=== PATIENT | female | born 1960 | race Caucasian/White ===

== ENCOUNTER 2018-02-16 13:06 | Outpatient (CLI) | payer BC ==
[2018-02-16 18:50] LABS: BASOPHILS % (AUTO) 0.6 %; EOSINOPHILS # (AUTO) 0.3 10^3/uL (0.0-0.7); EOSINOPHILS % (AUTO) 3.2 %; HGB - HEMOGLOBIN 13.4 g/dL (12.0-16.0); LYMPHOCYTES # (AUTO) 1.6 10^3/uL (1.5-3.5); LYMPHOCYTES % (AUTO) 19.3 %; MEAN CORPUSCULAR HEMOGLOBIN 28.5 pg (27.0-31.0); MEAN CORPUSCULAR HGB CONC 32.6 g/dL (32.0-36.0); MEAN CORPUSCULAR VOLUME 87.5 fL (81.0-99.0); MEAN PLATELET VOLUME 9.4 fL (7.9-10.8); MONOCYTES # (AUTO) 0.4 10^3/uL (0.0-1.0); MONOCYTES % (AUTO) 4.9 %; NEUTROPHILS # (AUTO) 5.8 10^3/uL (1.5-6.6); PLT - PLATELET COUNT 304 10^3/uL (130-450); RED BLOOD COUNT 4.69 10^6/uL (4.20-5.40); RED CELL DISTRIBUTION WIDTH 15.2 % (12.0-15.0); WHITE BLOOD COUNT 8.1 x10^3/uL (4.8-10.8)
[2018-02-16 19:05] LABS: HB2 TOTAL 14.7 g/dL; HEMOGLOBIN A1C 0.57 g/dL; HEMOGLOBIN A1C % 5.7 % (4.6-6.2)
[2018-02-16 19:07] LABS: ALBUMIN/GLOBULIN RATIO 1.5 (1.0-2.2); ALKALINE PHOSPHATASE 77 IU/L (42-121); ALT ALANINE AMINOTRANSFERASE 23 IU/L (10-60); AST ASPARTATE AMINOTRANSFERASE 24 IU/L (10-42); BILIRUBIN,TOTAL 0.7 mg/dL (0.2-1.0); BUN - BLOOD UREA NITROGEN 9 mg/dL (6-20); CALCIUM 9.3 mg/dL (8.5-10.3); CARBON DIOXIDE - CO2 29 mmol/L (21-32); CHLORIDE 101 mmol/L (101-111); CHOL/HDL RATIO 2.8 (<4.4); CHOLESTEROL 94 mg/dL; CREATININE 0.5 mg/dL (0.4-1.0); GFR - MDRD 127 (>89); GLUCOSE 85 mg/dL (70-100); HDL CHOLESTEROL 34 mg/dL; LDL CHOLESTEROL,CALCULATED 47 mg/dL; LDL/HDL RATIO 1.4 (<4.4); SODIUM 136 mmol/L (135-145); TOTAL PROTEIN 6.6 g/dL (6.7-8.2); VLDL CHOLESTEROL 13 mg/dL
== END 2018-02-16 23:59 | disposition home or self-care (01) ==
LOC: LAB.WCP 13:06
PROVIDERS: ATTEND Family Medicine
DX: I63.9 Cerebral infarction, unspecified (principal); Z13.220 Encounter for screening for lipoid disorders; Z13.1 Encounter for screening for diabetes mellitus; R51 Headache; R00.2 Palpitations
CPT/HCPCS: 36415; 80053; 80061; 83036; 83721; 84443; 85025

== ENCOUNTER 2019-09-04 04:39 | Emergency (ER) | payer BC ==
[2019-09-04] MEDS ORDERED: FOLIC ACID INJ 1 MG, THIAMINE INJ 100 MG, MAGNESIUM SULFATE 2 GM, MULTIVITAMIN 10 ML in... IV STA ×5 (05:42)
[2019-09-04] MEDS ORDERED: ALPRAZolam 0.25 MG TABLET PO STA (05:43)
[2019-09-04] MEDS ORDERED: DEXAMETHASONE 10 MG/ML VIAL IVP STA (05:43)
--- NOTE | 2019-09-04 05:46 | ED Physician Documentation ---
History of Present Illness - Stated complaint Stated Complaint: RACING HEART, HEAD PX, SORE THROAT - Chief complaint Chief Complaint: Cardiac - History obtained from History obtained from: Patient, Family - History of Present Illness Timing: How many days ago (3) - Additonal information Additional information: 59-year-old female previously well has had an upper respiratory infection over the past 4 to 5 days and she has now developed some palpitations in her chest over the past 3 days that are particularly worse this morning. She is noticing frequent palpitations. She is having some central chest pain as well. She knows that she is under significant stress. She is from her and her [id number] who was planning to come up to stay with her has now passed. The patient indicates that she was close to her [id number]. She indicates significant stress related to all aspects of this. She is accompanied here this morning by her daughter who is supportive. Patient denies any fever associated with this she does have a persistence of cough her sore throat and ear pain are now resolved. She has had headaches periodically. Review of Systems Constitutional: reports: Chills, Myalgias, Fatigue. denies: Fever Eyes: denies: Decreased vision Ears: reports: Ear pain Nose: reports: Rhinorrhea / runny nose, Congestion Throat: reports: Sore throat Cardiac: reports: Chest pain / pressure, Palpitations Respiratory: reports: Cough. denies: Dyspnea GI: denies: Abdominal Pain, Nausea, Vomiting : denies: Dysuria, Frequency Skin: denies: Rash Musculoskeletal: denies: Neck pain, Back pain, Extremity pain Neurologic: denies: Generalized weakness, Focal weakness, Numbness Psychiatric: reports: Depressed, Anxiety PD PAST MEDICAL HISTORY - Past Medical History Neuro: TIA - Past Surgical History Past Surgical History: Yes General: Cholecystectomy, Appendectomy HEENT: Tonsil/Adenoidectomy - Present Medications Home Medications: Ambulatory Orders Medication Instructions Recorded Confirmed Alprazolam [Xanax] 0.5 - 1 mg PO Q8HR PRN #14 tablet 09/04/19 Aspirin [Adult Aspirin Regimen] 09/04/19 Atorvastatin [Lipitor] 4 tab DAILY 09/04/19 09/04/19 - Allergies Allergies/Adverse Reactions: Allergies Allergy/AdvReac Type Severity Reaction Status Date / Time No Known Drug Allergies Allergy Verified 01/01/20 04:46 - Social History Does the pt smoke?: No Smoking Status: Never smoker Does the pt drink ETOH?: No Does the pt have substance abuse?: No - Immunizations Immunizations are current?: Yes - POLST Patient has POLST: No PD ED PE NORMAL - Vitals Vital signs reviewed: Yes (tachy and hypertensive ) - General General: Alert and oriented X 3, Well developed/nourished - HEENT HEENT: Atraumatic, PERRL, EOMI, Ears normal, Moist mucous membranes, Pharynx benign, Dentition benign - Neck Neck: Supple, no meningeal sign, No bony TTP, No JVD - Cardiac Cardiac: RRR, No murmur - Respiratory Respiratory: No respiratory distress, Clear bilaterally - Abdomen Abdomen: Normal bowel sounds, Soft, Non tender, Non distended, No organomegaly - Back Back: No CVA TTP, No spinal TTP - Derm Derm: Normal color, Warm and dry, No rash - Extremities Extremities: No deformity, No edema - Neuro Neuro: Alert and oriented X 3, technology sales consultant 2-12 intact, No motor deficit, No sensory deficit, Normal speech Eye Opening: Spontaneous Motor: Obeys Commands Verbal: Oriented GCS Score: 15 - Psych Psych: Other (mood is anxious and the affect is blunted) Results - Vitals Vitals: Vital Signs - 24 hr 09/04/19 09/04/19 04:42 06:45 Temperature 97.9 C H Heart Rate 101 H 75 Respiratory 18 20 Rate Blood Pressure 165/72 H 121/69 O2 Saturation 100 99 Oxygen O2 Source Room air - EKG (time done) 0449 Rate: Rate (enter#) (92) Rhythm: NSR Ischemia: Normal ST segments Compare to prior EKG: Old EKG unavailable Computer interpretation: Agree with computer - Labs Labs: Laboratory Tests 09/04/19 09/04/19 09/04/19 05:25 05:25 05:25 WBC 10.3 RBC 4.71 Hgb 13.7 Hct 40.9 MCV 86.8 MCH 29.1 MCHC 33.5 RDW 13.2 Plt Count 288 MPV 9.9 Neut # (Auto) 8.0 H Lymph # (Auto) 1.3 L [place] # (Auto) 1.0 Eos # (Auto) 0.1 Baso # (Auto) 0.0 Absolute Nucleated RBC 0.00 Nucleated RBC % 0.0 Sodium 132 L Potassium 3.0 L Chloride 94 L Carbon Dioxide 27 Anion Gap 11.0 BUN 11 Creatinine 0.6 Estimated GFR (MDRD) 102 Glucose 113 H Calcium 9.4 Total Bilirubin 0.7 AST 30 ALT 30 Alkaline Phosphatase 73 Troponin I High Sens 3.5 Total Protein 8.0 Albumin 5.4 Globulin 2.6 Albumin/Globulin Ratio 2.1 Lipase 53 H - Rads (name of study) chest Radiology: Prelim report reviewed (Impression: Clear lungs.), EMP read indepedently, See rad report Procedures - IVC sono (time) 0540 Bedside IVC sono: IVC measures (cm) (1.13), IVC collapsed c insp (cm) (complete), Dehydration (est just more than one liter.) PD MEDICAL DECISION MAKING - ED course Complexity details: reviewed old records, reviewed results, re-evaluated patient, considered differential, d/w patient, d/w family ED course: 59-year-old female with symptomatic PVCs is found to be dehydrated on interrogation of her inferior vena cava and she is quite stressed. She is administered a banana bag intravenously for the dehydration and she is given Xanax 0.5 mg orally for anxiety. She has not had good luck with Ativan previously. She does have some chest wall pain and she has had sobbing at night. There are no specific findings on diagnostics and the patient is treated for viral uri, dehydration and stress. Departure - Departure Disposition: 01 Home, Self Care Clinical Impression: Symptomatic PVCs, Sleep deprivation, Viral URI with cough, Stress reaction Condition: Stable Instructions: ED Stress React, ED Palpitations, ED URI Viral Follow-Up: KARYNA LUO MD [Primary Care Provider] - Prescriptions: Alprazolam [Xanax] 0.5 - 1 mg PO Q8HR PRN #14 tablet PRN Reason: Anxiety
[2019-09-04 05:47] LABS: BASOPHILS % (AUTO) 0.1 %; EOSINOPHILS # (AUTO) 0.1 10^3/uL (0.0-0.7); EOSINOPHILS % (AUTO) 0.7 %; HGB - HEMOGLOBIN 13.7 g/dL (12.0-16.0); LYMPHOCYTES # (AUTO) 1.3 10^3/uL (1.5-3.5); LYMPHOCYTES % (AUTO) 12.4 %; MEAN CORPUSCULAR HEMOGLOBIN 29.1 pg (27.0-31.0); MEAN CORPUSCULAR HGB CONC 33.5 g/dL (32.0-36.0); MEAN CORPUSCULAR VOLUME 86.8 fL (81.0-99.0); MEAN PLATELET VOLUME 9.9 fL (7.9-10.8); MONOCYTES % (AUTO) 9.5 %; NEUTROPHILS % (AUTO) 76.9 %; PLT - PLATELET COUNT 288 10^3/uL (130-450); RED BLOOD COUNT 4.71 10^6/uL (4.20-5.40); RED CELL DISTRIBUTION WIDTH 13.2 % (12.0-15.0); WHITE BLOOD COUNT 10.3 x10^3/uL (4.8-10.8)
[2019-09-04] MEDS ORDERED: THIAMINE 100 MG/1 ML 2 ML MDV ONE (05:48)
[2019-09-04 05:58] LABS: ALBUMIN 5.4 g/dL (3.2-5.5); ALBUMIN/GLOBULIN RATIO 2.1 (1.0-2.2); BILIRUBIN,TOTAL 0.7 mg/dL (0.2-1.0); CALCIUM 9.4 mg/dL (8.5-10.3); CREATININE 0.6 mg/dL (0.4-1.0)
--- NOTE | 2019-09-04 06:37 | XRAY Report ---
Reason: chest pain Procedure Date: 09/04/2019 Accession Number: [id number] / [id number] Procedure: XR - Chest 1 View X-Ray CPT Code: 87618 Final Report FULL RESULT: EXAM: CHEST RADIOGRAPHY EXAM DATE: 09/04/2019 06:12 AM. CLINICAL HISTORY: Chest pain. COMPARISON: None. TECHNIQUE: 1 view. FINDINGS: The mediastinal and cardiac silhouettes are normal. The lungs are clear. There is no pleural effusion or pneumothorax. Degenerative changes are seen in the right shoulder. IMPRESSION: Clear lungs. RADIA
[2019-09-04] MEDS ORDERED: ACETAMINOPHEN 325 MG TABLET PO STA (06:49)
[2019-09-04] MEDS ORDERED: POTASSIUM CHLORIDE 20 MEQ TABLET PO STA (06:50)
[2019-09-04 07:29] VITALS: BP 112/61
== END 2019-09-04 07:39 | disposition home or self-care (01) ==
LOC: ED 04:39
DX: I49.3 Ventricular premature depolarization (principal); R07.89 Other chest pain; E86.0 Dehydration; J06.9 Acute upper respiratory infection, unspecified; Z72.820 Sleep deprivation; F43.9 Reaction to severe stress, unspecified; F41.9 Anxiety disorder, unspecified; Z79.82 Long term (current) use of aspirin
CPT/HCPCS: 36415; 71045; 80053; 83690; 84484; 85025; 93005; 96365; 99284; A9270; J3411

== ENCOUNTER 2020-08-24 19:30 | Inpatient (IN) | payer BC ==
[2020-08-24 20:09] LABS: BASOPHILS % (AUTO) 0.3 %; EOSINOPHILS # (AUTO) 0.1 10^3/uL (0.0-0.7); EOSINOPHILS % (AUTO) 0.5 %; HGB - HEMOGLOBIN 14.6 g/dL (12.0-16.0); LYMPHOCYTES % (AUTO) 12.8 %; MEAN CORPUSCULAR HEMOGLOBIN 28.9 pg (27.0-31.0); MEAN CORPUSCULAR HGB CONC 33.1 g/dL (32.0-36.0); MEAN CORPUSCULAR VOLUME 87.2 fL (81.0-99.0); MEAN PLATELET VOLUME 9.9 fL (7.9-10.8); MONOCYTES # (AUTO) 0.6 10^3/uL (0.0-1.0); NEUTROPHILS # (AUTO) 12.7 10^3/uL (1.5-6.6); NEUTROPHILS % (AUTO) 82.1 %; PLT - PLATELET COUNT 356 10^3/uL (130-450); RED BLOOD COUNT 5.06 10^6/uL (4.20-5.40); RED CELL DISTRIBUTION WIDTH 13.2 % (12.0-15.0); WHITE BLOOD COUNT 15.4 x10^3/uL (4.8-10.8)
[2020-08-24 20:10] LABS: BILIRUBIN,URINE NEGATIVE (NEGATIVE); GLUCOSE, URINE (UA) NEGATIVE (NEGATIVE); KETONES,URINE (UA) NEGATIVE (NEGATIVE); LEUKOCYTE ESTERASE, URINE NEGATIVE (NEGATIVE); NITRITE,URINE NEGATIVE (NEGATIVE); OCCULT BLOOD,URINE NEGATIVE (NEGATIVE); PH,URINE >=9.0 PH (5.0-7.5); PROTEIN,URINE TRACE mg/dL (NEGATIVE); UROBILINOGEN,URINE 0.2 (NORMAL) E.U./dL (NORMAL)
[2020-08-24 20:13] LABS: CLARITY,URINE CLEAR (CLEAR)
[2020-08-24 20:21] LABS: ALBUMIN 5.3 g/dL (3.2-5.5); ALBUMIN/GLOBULIN RATIO 1.7 (1.0-2.2); BILIRUBIN,TOTAL 0.6 mg/dL (0.2-1.0); CALCIUM 10.2 mg/dL (8.5-10.3); CREATININE 0.6 mg/dL (0.4-1.0); TOTAL PROTEIN 8.4 g/dL (6.7-8.2)
[2020-08-24] MEDS ORDERED: MAG HYDROX/AL HYDROX/SIMETH 30 ML UDC PO STA (20:30)
[2020-08-24] MEDS ORDERED: LIDOCAINE VISCOUS 2% 15 ML UDC MM STA (20:30)
--- NOTE | 2020-08-24 20:31 | ED Physician Documentation ---
PD HPI ABD PAIN - Stated complaint Stated Complaint: ABD PAIN - Chief complaint Chief Complaint: Abd Pain - History obtained from History obtained from: Patient - Additional information Additional information: 60yo woman with history of remote appendectomy as a child and laparoscopic cholecystectomy developed epigastric and right upper quadrant pain at 1 PM that she describes as spasming. Since then it has progressed although over the last few minutes has come down a little bit. She is nauseous but has not vomited. She describes chronic but not acute constipation. Review of Systems Ten Systems: 10 systems reviewed and negative Constitutional: denies: Fever, Chills Cardiac: denies: Chest pain / pressure, Palpitations Respiratory: denies: Dyspnea, Cough GI: reports: Abdominal Pain, Nausea. denies: Vomiting PD PAST MEDICAL HISTORY - Past Medical History Neuro: TIA - Past Surgical History Past Surgical History: Yes General: Cholecystectomy, Appendectomy HEENT: Tonsil/Adenoidectomy - Present Medications Home Medications: Ambulatory Orders Medication Instructions Recorded Confirmed Alprazolam [Xanax] 0.5 - 1 mg PO Q8HR PRN #14 tablet 09/04/19 Aspirin [Adult Aspirin Regimen] 81 DAILY 09/04/19 Atorvastatin [Lipitor] 4 tab DAILY 09/04/19 09/04/19 - Allergies Allergies/Adverse Reactions: Allergies Allergy/AdvReac Type Severity Reaction Status Date / Time No Known Drug Allergies Allergy Verified 09/04/19 04:46 - Social History Does the pt smoke?: No Smoking Status: Never smoker Does the pt drink ETOH?: No Does the pt have substance abuse?: No - Immunizations Immunizations are current?: Yes - POLST Patient has POLST: No PD ED PE NORMAL - Vitals Vital signs reviewed: Yes - General General: Alert and oriented X 3, No acute distress - HEENT HEENT: PERRL, EOMI - Neck Neck: Supple, no meningeal sign, No bony TTP - Cardiac Cardiac: RRR, No murmur - Respiratory Respiratory: No respiratory distress, Clear bilaterally - Abdomen Abdomen: Other (Tender in the epigastrium and right upper quadrant more than the left upper quadrant, no surgical signs) - Back Back: No CVA TTP, No spinal TTP - Derm Derm: Normal color, Warm and dry - Extremities Extremities: No edema, No calf tenderness / cord Results - Vitals Vitals: Vital Signs - 24 hr 08/24/20 08/24/20 19:32 21:37 Temperature 36.4 C L 36.7 C Heart Rate 91 85 Respiratory 18 14 Rate Blood Pressure 170/84 H 136/73 H O2 Saturation 98 100 Oxygen O2 Source Room air - EKG (time done) 2041 Rate: Rate (enter#) (99) Rhythm: NSR [place]: Normal Intervals: Normal HI QRS: Normal Ischemia: Normal ST segments Computer interpretation: Agree with computer - Labs Labs: Laboratory Tests 08/24/20 08/24/20 08/24/20 19:43 20:00 20:00 WBC 15.4 H RBC 5.06 Hgb 14.6 Hct 44.1 MCV 87.2 MCH 28.9 MCHC 33.1 RDW 13.2 Plt Count 356 MPV 9.9 Neut # (Auto) 12.7 H Lymph # (Auto) 2.0 [place] # (Auto) 0.6 Eos # (Auto) 0.1 Baso # (Auto) 0.0 Absolute Nucleated RBC 0.00 Nucleated RBC % 0.0 Sodium 137 Potassium 3.2 L Chloride 97 L Carbon Dioxide 27 Anion Gap 13.0 BUN 12 Creatinine 0.6 Estimated GFR (MDRD) 102 Glucose 128 H Calcium 10.2 Total Bilirubin 0.6 AST 25 ALT 22 Alkaline Phosphatase 81 Total Protein 8.4 H Albumin 5.3 Globulin 3.1 Albumin/Globulin Ratio 1.7 Lipase 24 Urine Color YELLOW Urine Clarity CLEAR Urine pH >=9.0 H Ur Specific [place] 1.015 Urine Protein TRACE Urine Glucose (UA) NEGATIVE Urine Ketones NEGATIVE Urine Occult Blood NEGATIVE Urine Nitrite NEGATIVE Urine Bilirubin NEGATIVE Urine Urobilinogen 0.2 (NORMAL) Ur Leukocyte Esterase NEGATIVE Ur Microscopic Review NOT INDICATED Urine Culture Comments NOT INDICATED PD MEDICAL DECISION MAKING - ED course ED course: 60-year-old woman presents with acute upper abdominal pain. She has no gallbladder. Nonperitoneal exam. Initially tried some GI cocktail which she did have some relief from. Also did an EKG to make sure there was not ischemia, there was not. Pain quickly came back after the GI cocktail and looked uncomfortable so was sent over for CT with IV contrast. CT demonstrated a large amount of fluid and gas in the stomach with potential gastric outlet obstruction, also probably partial obstruction potentially closed-loop or internal hernia. Case was discussed by phone with Dr. Plascencia, the on-call surgeon at approximately 10 PM. He will consult and write orders. He plans to try initial management as conservative with bowel rest and NG tube. Departure - Departure Disposition: 66 [facility] DC/[facility] Clinical Impression: Small bowel obstruction Condition: Fair
[2020-08-24] MEDS ORDERED: ALPRAZolam 0.25 MG TABLET PO STA (20:51)
[2020-08-24] MEDS ORDERED: IOVERSOL 320 100 ML VIAL IVP ONE ×2 (21:05→21:37)
[2020-08-24] MEDS ORDERED: LORazepam 2 MG/ML VIAL IVP STA ×2 (21:36→22:01)
--- NOTE | 2020-08-24 21:58 | CT Report ---
PROCEDURE: Abdomen/Pelvis W INDICATIONS: IV only, upper abd pain CONTRAST: IV CONTRAST: Optiray 320 ml: 100 PO CONTRAST: *NO PO CONTRAST TECHNIQUE: After the administration of intravenous contrast, 5 mm thick sections acquired from the diaphragms to the symphysis. 5 mm thick coronal and sagittal reformats were acquired. For radiation dose reducti on, the following was used: automated exposure control, adjustment of mA and/or kV according to marisabel ent size. COMPARISON: None. FINDINGS: Image quality: Excellent. ABDOMEN: Lung bases: Lung bases are clear. Heart size is normal. Solid organs: Liver and spleen are normal in size and enhancement. Gallbladder is surgically absent Biliary system is non dilated. Pancreas enhances normally. No adrenal nodules. Kidneys demonstra te normal size and enhancement, without hydronephrosis. Peritoneum and bowel: A large amount of fluid and gas distends the gastric fundus. A shelf of soft ti ssue is noted within the gastric antrum (series 6/image 15 and series 3/image 21). Bowel loops demons trate normal overall wall thickness and caliber. A segment of fluid-filled, moderately dilated small bowel is present within the mid abdomen. The proximal and distal transition point both appear to be l ocated within the right upper quadrant (series 6, images 19 and 21). No pneumoperitoneum. Trace low-d ensity fluid is present within the pelvis. There are scattered colonic diverticula. No findings to newman ggest acute diverticulitis. A moderate amount of stool is present throughout the colon. No pneumatosi s. Nodes and vessels: No retroperitoneal or mesenteric adenopathy by size criteria. Aorta and inferior vena cava are normal in size. Miscellaneous: No ventral hernias. PELVIS: Genitourinary: Bladder wall thickness is normal. Miscellaneous: No inguinal hernias or adenopathy. Bones: No suspicious bony lesions. No vertebral body compression fractures. IMPRESSION: 1. Large amount of fluid and gas within the stomach. There is a questionable soft tissue shelf within the gastric antrum. The significance of this finding is unclear; however gastric outlet obstruction secondary to mass cannot be excluded. When possible, direct visualization could be used to further ch aracterize this finding. NG tube could also be useful to decompress the stomach at this time. 2. Dilated loop of the midportion of the small bowel with apparent proximal and distal transition poi nts within the right upper quadrant. Findings raise the suspicion for a closed loop partial obstructi on or internal hernia. Of note the colon is stool-filled suggesting incomplete obstruction. 3. Diverticulosis. No acute diverticulitis. These findings were discussed with Dr. Espinoza at 9:53 PM on 08/24/2020. Reviewed by: Maria Guadalupe Hernandez MD on 08/24/2020 9:56 PM PST Approved by: Maria Guadalupe Hernandez MD on 08/24/2020 9:56 PM PST Station ID: [id number]
[2020-08-24] MEDS ORDERED: D5.45NS W/20 MEQ KCL 1,000 ML IV STA (22:04)
[2020-08-24 23:50] LABS: C. PNEUMONIAE- RESP PCR PANEL NOT DETECTED
[2020-08-25] MEDS ORDERED: ONDANSETRON 4 MG/2 ML VIAL IVP PRN ×2 (00:05→00:10)
[2020-08-25] MEDS ORDERED: ACETAMINOPHEN 1,000 MG/100 ML 100 ML IV PRN (00:05)
[2020-08-25] MEDS ORDERED: HYDROmorphone 0.5 MG/0.5 ML SYRINGE IVP PRN (00:05)
--- NOTE | 2020-08-25 00:18 | SURGERY HX AND PHYSICAL(T) ---
Surgical History & Physical - Chief Complaint/HPI Chief Complaint: Small bowel obstruction History of Present Illness: 60-year-old female with no past surgical history who presents with 24 hours of nausea and vomiting. There is also associated abdominal discomfort and pain as well. She reports recent development of worsening constipation with decreasing frequency and increasing interval between bowel movements. Longstanding history of constipation historically. She denies prior colonoscopy and/or upper endoscopy. History of vaginal delivery x2 with no reported obstetrical laceration. Only past medical history is TIA for which there is no residual deficit. Patient's only medication is HMG Co. a reductase inhibitor. Denies fevers. No similar prior episodes of obstructive symptoms. Work-up by ER physician revealed dilated stomach along with small bowel and surgical consultation obtained. Family history of colorectal cancer. No family history or personal history of inflammatory bowel disease, Crohn's disease, ulcerative colitis. - PMH/PSH/Social Hx Neurological History: TIA General: Cholecystectomy, Appendectomy Eyes Ears Nose Throat (EENT): Tonsil/Adenoidectomy Smoking Status: Never smoker Does the pt drink ETOH?: No Does the pt have substance abuse?: No - Home Meds and Allergies Home Medications: Aspirin [Lyla] 325 mg PO DAILY 08/25/20 Atorvastatin [Lipitor] 40 mg PO DAILY 08/25/20 Allergies/Adverse Reactions: Allergies Allergy/AdvReac Type Severity Reaction Status Date / Time No Known Drug Allergies Allergy Verified 09/04/19 04:46 - Review of Systems Constitutional: Fatigue Gastrointestinal: Nausea, Vomiting, Abdominal pain, Constipation. No: Diarrhea, Melena, Hematochechezia - Vital Signs Heart Rate: 88 Blood Pressure: 137/87 Temperature: 36.8 C Respiratory Rate: 16 O2 Saturation: 98 Weight (kg): 54.431 kg Height: 1.6 m - Physical Exam General Appearance: positive: No acute distress, Alert Eyes Bilatera: positive: Normal inspection, PERRL, EOMI ENT: positive: ENT inspection nml Neck: positive: Nml inspection Respiratory: positive: Chest non-tender, No respiratory distress, Breath sounds nml. negative: Wheezes, Rales, Rhonchi Cardiovascular: positive: Regular rate & rhythm Abdomen: positive: Tenderness, Other (Time of this evaluation the patient with NG tube in place with no significant abdominal distention only mild tenderness to deep palpation. No rebound, no guarding. No peritoneal signs. No palpable hernias.). negative: Guarding, Rebound Rectal: positive: Other (Digital rectal with significant retained hard stool burden within the rectum. Disimpacted for small amount. No blood no pain no palpable masses) Extremities: positive: Non-tender, Full ROM, Nml appearance Neurologic/Psychiatric: positive: Oriented x3, CN's nml (2-12), Motor nml, Sensation nml, Mood/affect nml - Patient Review Patient Review: Problems were reviewed with the patient during this visit. Medications were reviewed with the patient during this visit. Allergies were reviewed this patient during this visit. Pertinent Tests Reviewed: All pertitent test for this patient were reviewed. - Assessment & Plan Assessment and Plan: 60-year-old female with history of TIA no other significant past medical history who presents with gastric distention and signs and symptoms consistent with small bowel obstruction. She has had no prior laparotomy, essentially she has a "virgin" abdomen. This is generally concerning in the setting of bowel obstruction the absence of prior surgical intervention and/or other underlying etiology including hernia to which this could be attributed. No peritoneal signs at this time. Plan as follows: 1. Bowel rest, nasogastric decompression, IV fluid resuscitation. 2. Serial abdominal exams, plain film imaging, possible repeat imaging with CT and contrast challenge. 3. May need operative intervention if fails conservative management. Will follow closely. 4. Electrolytes normal at this time we will continue to monitor them with daily lab draws. 5. Given the concerning features on CT imaging regarding the gastric findings and her significant change in bowel function, if we avoid operative intervention we would likely need to proceed with endoscopic evaluation especially given her chronic symptoms. Abdomen pelvis CT impression: 1. Large amount of fluid and gas within the stomach. There is a questionable soft tissue shelf within the gastric antrum. The significance of this finding is unclear; however gastric outlet obstruction secondary to mass cannot be excluded. When possible, direct visualization could be used to further characterize this finding. NG tube could also be useful to decompress the stomach at this time. 2. Dilated loop of the midportion of the small bowel with apparent proximal distal transition point within the upper abdomen. Findings raises suspicion for closed-loop partial obstruction or internal hernia. Of note the colon is stool-filled suggesting incomplete obstruction. 3. Diverticulosis no active or acute diverticulitis.
[2020-08-25] MEDS ORDERED: D5NS W/20 MEQ KCL 1,000 ML IV SCH (01:00)
[2020-08-25] MEDS: SODIUM CHLORIDE FLUSH 0.9% 10 ML SYRINGE IVP SCH ×3 (01:52→17:59)
[2020-08-25 05:15] LABS: BASOPHILS % (AUTO) 0.2 %; EOSINOPHILS # (AUTO) 0.1 10^3/uL (0.0-0.7); EOSINOPHILS % (AUTO) 0.8 %; HGB - HEMOGLOBIN 11.8 g/dL (12.0-16.0); LYMPHOCYTES # (AUTO) 1.8 10^3/uL (1.5-3.5); LYMPHOCYTES % (AUTO) 16.4 %; MEAN CORPUSCULAR HEMOGLOBIN 29.5 pg (27.0-31.0); MEAN CORPUSCULAR HGB CONC 33.7 g/dL (32.0-36.0); MEAN CORPUSCULAR VOLUME 87.5 fL (81.0-99.0); MEAN PLATELET VOLUME 9.8 fL (7.9-10.8); MONOCYTES # (AUTO) 0.8 10^3/uL (0.0-1.0); MONOCYTES % (AUTO) 7.7 %; NEUTROPHILS % (AUTO) 74.6 %; PLT - PLATELET COUNT 269 10^3/uL (130-450); RED CELL DISTRIBUTION WIDTH 13.2 % (12.0-15.0); WHITE BLOOD COUNT 10.7 x10^3/uL (4.8-10.8)
[2020-08-25 05:27] LABS: ALBUMIN 3.6 g/dL (3.2-5.5); ALBUMIN/GLOBULIN RATIO 1.6 (1.0-2.2); BILIRUBIN,TOTAL 0.5 mg/dL (0.2-1.0); CALCIUM 8.9 mg/dL (8.5-10.3); CREATININE 0.5 mg/dL (0.4-1.0); TOTAL PROTEIN 5.8 g/dL (6.7-8.2)
[2020-08-25] MEDS: methocarbamoL 500 MG TABLET PO SCH ×3 (06:19→18:03)
[2020-08-25] MEDS: METOCLOPRAMIDE 10 MG/2 ML VIAL IVP SCH ×3 (06:58→17:59)
[2020-08-25] MEDS: PANTOPRAZOLE 40 MG VIAL IVP SCH (06:58)
[2020-08-25] MEDS: D5NS W/20 MEQ KCL 1,000 ML IV SCH ×3 (07:06→21:27)
[2020-08-25] MEDS ORDERED: INSULIN ASPART 300 UNIT/3 ML PEN SUBQ SCH (08:00)
--- NOTE | 2020-08-25 08:06 | XRAY Report ---
PROCEDURE: Chest for Line Placement INDICATIONS: Post NG Tube TECHNIQUE: One view of the chest was acquired. COMPARISON: 09/04/2019 FINDINGS: Surgical changes and devices: NG tube causes GE junction with side port and tip in the proximal stoma ch.. Lungs and pleura: No pleural effusions or pneumothorax. Lungs are clear. Mediastinum: Mediastinal contours appear normal. Heart size is normal. Bones and chest wall: No suspicious bony lesions. Overlying soft tissues appear unremarkable. IMPRESSION: No acute cardiopulmonary disease process. Reviewed by: Arminda Johnson MD, PhD on 08/25/2020 8:[address] [facility] Approved by: Arminda Johnson MD, PhD on 08/25/2020 8:04 AM PST Station ID: [id number]
[2020-08-25] MEDS: polyethylene glycoL 3350 17 GM PACKET PO SCH ×2 (10:56→20:44)
--- NOTE | 2020-08-25 10:56 | XRAY Report ---
PROCEDURE: Abdomen 1 View X-Ray INDICATIONS: sbo follow up TECHNIQUE: 1 view of the abdomen were acquired. COMPARISON: CT abdomen and pelvis 08/24/2020 FINDINGS: Surgical changes and devices: Nasogastric tube is coiled below the left hemidiaphragm. Cholecystectom y clips are present. Bowel: No pneumoperitoneum. The bowel gas pattern is nonspecific. Previous fluid-filled distention of the stomach has decreased. Soft tissues: No masses; visualized solid organ contours appear normal in size. No suspicious abdom inal calcifications. Bones: No suspicious bony abnormalities. IMPRESSION: Interval decrease of previous gastric distention. No gross obstruction. Reviewed by: Nicole Busby MD on 08/25/2020 10:54 AM [facility] Approved by: Nicole Busby MD on 08/25/2020 10:54 AM [facility] Station ID: [id number]
[2020-08-25] MEDS: ENOXAPARIN 40 MG/0.4 ML SYRINGE SUBQ SCH (11:19)
[2020-08-25] MEDS: SALINE ENEMA 133 ML BOTTLE RC SCH (11:20)
[2020-08-25] MEDS: INSULIN REGULAR HUMAN 300 UNIT/3 ML VIAL SUBQ SCH ×2 (11:25→17:26)
--- NOTE | 2020-08-25 12:08 | PHARMACY PROGRESS NOTE ---
- Best Possible Medication History Admit Date and Time: 08/25/20 0005 Processed by: Pharmacy Medication History completed: Yes Patient Interview: Completed Secondary Source(s): Physician records (PATIENT INTERVIEWED BY NEWS AGENT. PATIENT ABLE TO CONFIRM HOME MEDICATIONS), Pharmacy records, Insurance records As the person ultimately responsible for medication therapy, providers are able to order a medication from an existing home medication list in [facility] via the "Reconcile Routine" prior to Confirmation of that medication by community support professional. Such practice is discouraged except when the physician, in their clinical judgment, deems that a medical need exists for a medication without regard to previous use.
[2020-08-25] MEDS ORDERED: PEG 3350/NA SULF,BICARB,CL/KCL 4,000 ML BOTTLE PO ONE (13:11)
[2020-08-25] MEDS ORDERED: LORazepam 2 MG/ML VIAL IVP PRN (20:14)
[2020-08-26] MEDS: methocarbamoL 500 MG TABLET PO SCH ×4 (00:02→17:09)
[2020-08-26] MEDS: D5NS W/20 MEQ KCL 1,000 ML IV SCH ×3 (05:04→17:09)
[2020-08-26 05:27] LABS: BASOPHILS % (AUTO) 0.3 %; EOSINOPHILS # (AUTO) 0.1 10^3/uL (0.0-0.7); EOSINOPHILS % (AUTO) 1.9 %; HGB - HEMOGLOBIN 11.1 g/dL (12.0-16.0); LYMPHOCYTES # (AUTO) 1.8 10^3/uL (1.5-3.5); LYMPHOCYTES % (AUTO) 27.3 %; MEAN CORPUSCULAR HEMOGLOBIN 29.7 pg (27.0-31.0); MEAN CORPUSCULAR HGB CONC 33.5 g/dL (32.0-36.0); MEAN CORPUSCULAR VOLUME 88.5 fL (81.0-99.0); MONOCYTES # (AUTO) 0.6 10^3/uL (0.0-1.0); NEUTROPHILS # (AUTO) 4.1 10^3/uL (1.5-6.6); NEUTROPHILS % (AUTO) 61.4 %; PLT - PLATELET COUNT 245 10^3/uL (130-450); RED BLOOD COUNT 3.74 10^6/uL (4.20-5.40); RED CELL DISTRIBUTION WIDTH 13.3 % (12.0-15.0); WHITE BLOOD COUNT 6.7 x10^3/uL (4.8-10.8)
[2020-08-26 05:41] LABS: ALBUMIN 3.1 g/dL (3.2-5.5); ALBUMIN/GLOBULIN RATIO 1.4 (1.0-2.2); BILIRUBIN,TOTAL 0.4 mg/dL (0.2-1.0); CALCIUM 8.6 mg/dL (8.5-10.3); CREATININE 0.5 mg/dL (0.4-1.0); TOTAL PROTEIN 5.3 g/dL (6.7-8.2)
[2020-08-26] MEDS: INSULIN REGULAR HUMAN 300 UNIT/3 ML VIAL SUBQ SCH ×3 (06:19→12:45)
[2020-08-26] MEDS: METOCLOPRAMIDE 10 MG/2 ML VIAL IVP SCH ×4 (06:19→18:40)
[2020-08-26] MEDS: SODIUM CHLORIDE FLUSH 0.9% 10 ML SYRINGE IVP SCH ×3 (06:19→06:28)
[2020-08-26] MEDS: PANTOPRAZOLE 40 MG VIAL IVP SCH (06:28)
[2020-08-26] MEDS: SALINE ENEMA 133 ML BOTTLE RC SCH (08:27)
[2020-08-26] MEDS: polyethylene glycoL 3350 17 GM PACKET PO SCH ×4 (08:27→21:36)
--- NOTE | 2020-08-26 08:54 | ANESTHESIA ---
Pre-Anesthesia VS, & Labs - Diagnosis Abd Pain - Procedure EGD/Colonoscopy Vital Signs: Temp Pulse Resp BP Pulse Ox 36.7 C 63 16 123/70 98 08/26/20 00:00 08/26/20 00:00 08/26/20 00:00 08/26/20 00:00 08/26/20 00:00 Height: 5 ft 3 in Weight (kg): 54.431 kg Body Mass Index: 21.2 BMI Classification: Healthy weight - NPO Other (Taking bowel prep) - Is Patient ?: No - Lab Results Current Lab Results: Laboratory Tests 08/26/20 06:17: POC Whole Bld Glucose 100 08/26/20 05:00: Sodium 140, Potassium 3.8, Chloride 110, Carbon Dioxide 25, Anion Gap 5.0 L, BUN 5 L, Creatinine 0.5, Estimated GFR (MDRD) 126, Glucose 118 H, Calcium 8.6, Total Bilirubin 0.4, AST 17, ALT 17, Alkaline Phosphatase 48, Total Protein 5.3 L, Albumin 3.1 L, Globulin 2.2, Albumin/Globulin Ratio 1.4 08/26/20 05:00: WBC 6.7, RBC 3.74 L, Hgb 11.1 L, Hct 33.1 L, MCV 88.5, MCH 29.7, MCHC 33.5, RDW 13.3, Plt Count 245, MPV 10.0, Neut # (Auto) 4.1, Lymph # (Auto) 1.8, Larimer # (Auto) 0.6, Eos # (Auto) 0.1, Baso # (Auto) 0.0, Absolute Nucleated RBC 0.00, Nucleated RBC % 0.0 08/25/20 23:53: POC Whole Bld Glucose 119 H 08/25/20 16:49: POC Whole Bld Glucose 119 H 08/25/20 11:25: POC Whole Bld Glucose 115 H 08/25/20 07:07: POC Whole Bld Glucose 106 H 08/25/20 05:00: Sodium 136, Potassium 3.8, Chloride 105, Carbon Dioxide 24, Anion Gap 7.0, BUN 9, Creatinine 0.5, Estimated GFR (MDRD) 126, Glucose 138 H, Calcium 8.9, Total Bilirubin 0.5, AST 18, ALT 16, Alkaline Phosphatase 54, Total Protein 5.8 L, Albumin 3.6, Globulin 2.2, Albumin/Globulin Ratio 1.6 08/25/20 05:00: WBC 10.7, RBC 4.00 L, Hgb 11.8 L, Hct 35.0 L, MCV 87.5, MCH 29.5, MCHC 33.7, RDW 13.2, Plt Count 269, MPV 9.8, Neut # (Auto) 8.0 H, Lymph # (Auto) 1.8, Larimer # (Auto) 0.8, Eos # (Auto) 0.1, Baso # (Auto) 0.0, Absolute Nucleated RBC 0.00, Nucleated RBC % 0.0 08/24/20 20:00: Sodium 137, Potassium 3.2 L, Chloride 97 L, Carbon Dioxide 27, Anion Gap 13.0, BUN 12, Creatinine 0.6, Estimated GFR (MDRD) 102, Glucose 128 H, Calcium 10.2, Total Bilirubin 0.6, AST 25, ALT 22, Alkaline Phosphatase 81, Total Protein 8.4 H, Albumin 5.3, Globulin 3.1, Albumin/Globulin Ratio 1.7, Lipase 24 08/24/20 20:00: WBC 15.4 H, RBC 5.06, Hgb 14.6, Hct 44.1, MCV 87.2, MCH 28.9, MCHC 33.1, RDW 13.2, Plt Count 356, MPV 9.9, Neut # (Auto) 12.7 H, Lymph # (Auto) 2.0, Larimer # (Auto) 0.6, Eos # (Auto) 0.1, Baso # (Auto) 0.0, Absolute Nucleated RBC 0.00, Nucleated RBC % 0.0 Fish Bones: 08/26/20 05:00 08/26/20 05:00 Home Medications and Allergies Home Medications: Ambulatory Orders Aspirin [Lyla] 325 mg PO DAILY 08/25/20 Atorvastatin [Lipitor] 40 mg PO DAILY 08/25/20 Active Medications Enoxaparin Sodium (Enoxaparin 40 Mg/0.4 Ml Syringe) 40 mg SUBQ DAILY [facility]RISTINA Last Admin: 08/25/20 11:19 Dose: 40 mg Documented by: Hydromorphone HCl (Hydromorphone 0.5 Mg/0.5 Ml Syringe) 0.5 mg IVP Q2H PRN PRN Reason: Pain 8 to 10 Potassium Chloride/Dextrose/Sod Cl () 1,000 mls @ 125 mls/hr IV .Q8H [facility] Last Admin: 08/26/20 05:04 Dose: 125 mls/hr Documented by: Acetaminophen (Ofirmev) 100 mls @ 400 mls/hr IV Q6HR PRN PRN Reason: PAIN Last Infusion: 08/25/20 13:23 Dose: Infused Documented by: Insulin Human Regular (Insulin Regular Human 300 Unit/3 Ml Vial) 1 - 5 unit SUBQ Q6HR [facility]; Protocol Last Admin: 08/26/20 06:19 Dose: Not Given Documented by: Lorazepam (Lorazepam 2 Mg/Ml Vial) 0.5 mg IVP HS PRN PRN Reason: Anxiety Last Admin: 08/25/20 20:40 Dose: 0.5 mg Documented by: Methocarbamol (Methocarbamol 500 Mg Tablet) 500 mg PO Q6HR [facility] Last Admin: 08/26/20 06:19 Dose: Not Given Documented by: Metoclopramide HCl (Metoclopramide 10 Mg/2 Ml Vial) 10 mg IVP Q6HR [facility] Last Admin: 08/26/20 06:19 Dose: 10 mg Documented by: Ondansetron HCl (Ondansetron 4 Mg/2 Ml Vial) 4 mg IVP Q6HR PRN PRN Reason: Nausea / Vomiting Pantoprazole Sodium (Pantoprazole 40 Mg Vial) 40 mg IVP QDAC [facility] Last Admin: 08/26/20 06:28 Dose: 40 mg Documented by: Polyethylene Glycol (Polyethylene Glycol 3350 17 Gm Packet) 17 gm PO BID [facility] Last Admin: 08/26/20 08:27 Dose: Not Given Documented by: Sodium Biphosphate/Sodium Phosphate (Saline Enema 133 Ml Bottle) 133 ml RC DAILY [facility] Last Admin: 08/26/20 08:27 Dose: Not Given Documented by: Sodium Chloride (Sodium Chloride Flush 0.9% 10 Ml Syringe) 10 ml IVP 0100,0 900,1700 [facility] Last Admin: 08/26/20 06:28 Dose: 10 ml Documented by: Sodium Chloride (Sodium Chloride Flush 0.9% 10 Ml Syringe) 10 ml IVP PRN PRN PRN Reason: NEEDED PER PROVIDER ORDERS Aspirin [Lyla] 325 mg PO DAILY 08/25/20 Atorvastatin [Lipitor] 40 mg PO DAILY 08/25/20 Allergies/Adverse Reactions: Allergies Allergy/AdvReac Type Severity Reaction Status Date / Time No Known Drug Allergies Allergy Verified 09/04/19 04:46 Anes History & Medical History - Anesthetic History Anesthesia Complications: reports: Other-see comment (After EGD around 20 years ago was nauseous. No problems with Appy or Laura.) Family history of Anesthesia Complications: Denies Family history of Malignant Hyperthermia: Denies - Medical History Cardiovascular: reports: Murmur, Other (There was a medical note that she had PVC's) Pulmonary: reports: Sleep apnea (Snores, denies waking self up with chocking or gagging. States in previous admission was told may have DOMENICO.) Gastrointestinal: reports: GERD, Chronic constipation Urinary: reports: None Neuro: reports: TIA (States has residual mild speech and short term memory issues. is actively working on improving this by taking a class and reading.) Musculoskeletal: reports: Osteoarthritis Endocrine/Autoimmune: reports: None Blood Disorders: reports: Anemia (Currently) Skin: reports: Other Smoking Status: Never smoker Psychosocial: reports: Depression, Anxiety, Anxiolytic (Xanax. becomes nervous very easily.) - Surgical History General: Cholecystectomy, Appendectomy Eyes Ears Nose Throat (EENT): Tonsil/Adenoidectomy Exam General: Alert, Oriented x3, Cooperative, Mild distress Dental: Other (Chip upper front) Mouth Openin Fingerbreadth Neck Mobility: Normal Mallampati classification: I Thyromental Distance: 4-6 cm Plan Anesthesia Type: MAC Consent for Procedure(s) Verified and Reviewed: Yes Code Status: Attempt Resuscitation ASA classification: 3-Severe systemic disease Is this case an emergency?: Yes (Discussed anesthetic, consent signed.)
[2020-08-26] MEDS ORDERED: MIDAZOLAM 2 MG/2 ML VIAL ONE (10:13)
[2020-08-26] MEDS ORDERED: KETAMINE 500 MG/10 ML VIAL ONE (10:15)
[2020-08-26] MEDS ORDERED: PROPOFOL 200 MG/20 ML VIAL IVP ONE (10:16)
[2020-08-26] MEDS ORDERED: LIDOCAINE-MPF 2% 5 ML VIAL ONE (10:16)
[2020-08-26] MEDS ORDERED: WATER FOR INJECTION,STERILE 10 ML ONE (10:17)
--- NOTE | 2020-08-26 11:20 | PROVIDER PROGRESS NOTE ---
Progress Note 60-year-old female with history of TIA no other significant past medical history who presents with gastric distention and signs and symptoms consistent with small bowel obstruction. She has had no prior laparotomy, essentially she has a "virgin" abdomen. She was started on soapsuds enemas following fleets enema with positive stool per rectum. NG tube was used for 2000 cc GoLYTELY bowel prep which was administered slowly over near 24 hours with no residual. Patient began having multiple loose stools and was felt appropriate to proceed with lower endoscopy as well as upper endoscopy for CT scan findings and concerns for obstructive symptoms. Abdomen pelvis CT impression (ADMISSION0: 1. Large amount of fluid and gas within the stomach. There is a questionable soft tissue shelf within the gastric antrum. The significance of this finding is unclear; however gastric outlet obstruction secondary to mass cannot be excluded. When possible, direct visualization could be used to further characterize this finding. NG tube could also be useful to decompress the stomach at this time. 2. Dilated loop of the midportion of the small bowel with apparent proximal distal transition point within the upper abdomen. Findings raises suspicion for closed-loop partial obstruction or internal hernia. Of note the colon is stool- filled suggesting incomplete obstruction. 3. Diverticulosis no active or acute diverticulitis. Colonoscopy findings: 1. Internal hemorrhoids; nonbleeding. 2. Extensive pancolonic diverticulitis favoring the left 3. Tortuous colon with extensive redundancy requiring counterpressure stiffening wire and postural change in order to achieve the cecum. 4. Terminal ileum achieved normal without any ileitis or other concerning features ileocecal valve rightly patent 5. No colitis no proctitis; as stated matos colonic diverticulosis without any e vidence of diverticulitis or diverticular bleed 6. No masses noted however retained stool extensively irrigated ruling out masses and polyps greater than 6 mm Endoscopic findings: 1. Duodenum achieved with no duodenitis no masses no obstruction antrum and pylorus traversed without any evidence of mass lesion in the area on insufflation. Biopsies obtained. 2. Gastric biopsies randomly taken with evidence of gastritis. 3. GE junction normal 4. Midesophagus without any pathology 5. Possible small hiatal hernia 6. No masses appreciated grossly Plan going as forward is as follows: 1. Advance diet as tolerated 2. Aggressive bowel regimen with MiraLAX 3. Begin Protonix twice daily 4. Likely discharge next 24 to 48 hours 5. Hep-Lock IV fluids
[2020-08-26] MEDS ORDERED: LACTATED RINGERS 1,000 ML IV ONE ×2 (12:12→12:19)
[2020-08-26] MEDS ORDERED: GLYCOPYRROLATE 1 MG/5 ML VIAL ONE (12:15)
--- NOTE | 2020-08-26 12:20 | ANESTHESIA POST OP EVALUATION ---
Anesthesia Post Eval - Post Anesthesia Eval Vitals: Last Vital Signs Temp 36.0 C L 08/26/20 12:12 Pulse 102 H 08/26/20 12:12 Resp 12 08/26/20 12:12 BP 119/69 08/26/20 12:12 Pulse Ox 100 08/26/20 12:12 CV Function Including HR & BP: positive: Stable Pain Control: positive: Satisfactory Nausea & Vomiting: positive: Negative Mental Status: positive: Baseline, Other (Much more relaxed, not distressed) Respiratory Status: Airway Patent Hydration Status: Satisfactory Anesthesia Complications: positive: None (Awake and oriented. To castillo soon.)
[2020-08-26] MEDS: SODIUM CHLORIDE FLUSH 0.9% 10 ML SYRINGE IVP PRN (12:38)
[2020-08-26] MEDS: ENOXAPARIN 40 MG/0.4 ML SYRINGE SUBQ SCH (12:45)
[2020-08-26] MEDS: DOCUSATE SODIUM 100 MG CAPSULE PO SCH ×2 (14:51→21:36)
[2020-08-26] MEDS: INSULIN ASPART 300 UNIT/3 ML PEN SUBQ SCH ×2 (17:17→21:37)
[2020-08-26] MEDS ORDERED: ALPRAZolam 0.25 MG TABLET PO PRN (20:48)
[2020-08-27] MEDS: METOCLOPRAMIDE 10 MG/2 ML VIAL IVP SCH ×3 (00:16→12:34)
[2020-08-27] MEDS: methocarbamoL 500 MG TABLET PO SCH ×5 (00:18→16:50)
[2020-08-27] MEDS: SODIUM CHLORIDE FLUSH 0.9% 10 ML SYRINGE IVP SCH ×3 (00:19→16:51)
[2020-08-27 05:09] LABS: BASOPHILS % (AUTO) 0.3 %; EOSINOPHILS # (AUTO) 0.1 10^3/uL (0.0-0.7); EOSINOPHILS % (AUTO) 1.2 %; HGB - HEMOGLOBIN 10.2 g/dL (12.0-16.0); LYMPHOCYTES # (AUTO) 1.7 10^3/uL (1.5-3.5); LYMPHOCYTES % (AUTO) 18.8 %; MEAN CORPUSCULAR HEMOGLOBIN 29.1 pg (27.0-31.0); MEAN CORPUSCULAR HGB CONC 33.2 g/dL (32.0-36.0); MEAN CORPUSCULAR VOLUME 87.5 fL (81.0-99.0); MONOCYTES # (AUTO) 0.8 10^3/uL (0.0-1.0); MONOCYTES % (AUTO) 8.4 %; NEUTROPHILS # (AUTO) 6.4 10^3/uL (1.5-6.6); NEUTROPHILS % (AUTO) 71.1 %; PLT - PLATELET COUNT 251 10^3/uL (130-450); RED BLOOD COUNT 3.51 10^6/uL (4.20-5.40); RED CELL DISTRIBUTION WIDTH 13.2 % (12.0-15.0)
[2020-08-27 05:18] LABS: ALBUMIN 3.2 g/dL (3.2-5.5); ALBUMIN/GLOBULIN RATIO 1.5 (1.0-2.2); BILIRUBIN,TOTAL 0.4 mg/dL (0.2-1.0); CALCIUM 8.9 mg/dL (8.5-10.3); CREATININE 0.5 mg/dL (0.4-1.0); TOTAL PROTEIN 5.4 g/dL (6.7-8.2)
[2020-08-27] MEDS: SODIUM CHLORIDE FLUSH 0.9% 10 ML SYRINGE IVP PRN ×2 (06:10→20:07)
[2020-08-27] MEDS: polyethylene glycoL 3350 17 GM PACKET PO SCH ×3 (08:44→20:39)
[2020-08-27] MEDS: DOCUSATE SODIUM 100 MG CAPSULE PO SCH ×2 (08:45→20:39)
[2020-08-27] MEDS: INSULIN ASPART 300 UNIT/3 ML PEN SUBQ SCH ×4 (08:46→21:39)
[2020-08-27] MEDS: ENOXAPARIN 40 MG/0.4 ML SYRINGE SUBQ SCH (08:47)
[2020-08-27] MEDS: PANTOPRAZOLE 40 MG VIAL IVP SCH (08:48)
[2020-08-27] MEDS: SALINE ENEMA 133 ML BOTTLE RC SCH (08:59)
[2020-08-27] MEDS ORDERED: ASPIRIN 325 MG TABLET PO SCH (09:00)
[2020-08-27] MEDS ORDERED: ATORVASTATIN 40 MG TABLET PO SCH (09:00)
[2020-08-27] MEDS ORDERED: POTASSIUM CHLORIDE 20 MEQ/15 ML UDC PO SCH (15:00)
[2020-08-27] MEDS: ACETAMINOPHEN 325 MG TABLET PO SCH ×3 (15:06→20:35)
[2020-08-27] MEDS: METOCLOPRAMIDE 10 MG TABLET PO SCH ×2 (15:12→20:39)
[2020-08-27] MEDS: POTASSIUM CHLOR 10 MEQ/100 ML 10 MEQ/100 ML BAG IV SCH ×3 (15:13→18:32)
--- NOTE | 2020-08-27 18:56 | Discharge Plan ---
Discharge Plan Problem Reviewed?: Yes Disposition: Home, Self Care Condition: Good Prescriptions: Docusate Sodium 100Mg Capsule [Colace 100Mg Capsule] 100 mg PO BID #60 capsule polyethylene glycoL 3350 [Miralax] 17 gm PO DAILY #1 packet Pantoprazole Sodium [Protonix] 20 mg PO BID #60 tablet. Metoclopramide [Reglan] 10 mg PO AC #90 tablet Diet: Regular Activity Restrictions: No Restrictions Shower Restrictions: No Driving Restrictions: No Weight Bearing: Full Weight Instruction Topics: Constipation, Obstruction Sm Bowel, Obstruction Large Bowel Health Concerns: 1. Chronic constipation: Patient performed for decompression and bowel preparation. Performed for imaging and ultimate colonoscopy and upper endoscopy with no evidence of any anatomic correlate for her obstructive symptoms. Likely chronic constipation/inertia. Aggressive bowel regimen going forward. 2. Hypokalemia: Have repleted potassium and will recheck prior to discharge. 3. Anxiety: Addressed with anxiety lytics throughout her hospital stay. 4. Gastritis: Continue proton pump inhibitor inhibition and await final pathology Plan of Treatment: 1. Bowel regimen 2. We will consider potassium replacements 3. Follow-up with labs 4. Await pathology continue proton pump inhibition and follow-up in clinic. Assessment: See discharge summary Additional Instructions or Follow Up instructions: DISCHARGE INSTRUCTIONS TEMPLATE: No heavy lifting, pushing, or pulling. Stairs are allowed, no strenuous/exertional activities. 5-10lbs weight carrying limit (i.e. gallon of milk) If provided, abdominal binder while out of bed and while ambulating. Call or proceed to clinic/ER for fevers, severe pain, nausea, vomiting, inability to pass flatus/stool, bleeding, wound redness/discharge, weakness, excessively loose stool/diarrhea, or for any other reasonably worrisome symptom or concern. Soft diet, no raw vegetables, avoid high fiber foods. Colace 100mg by mouth twice to three times daily while taking narcotic pain medication. If no bowel movement in 24-48hr, may take 17g Miralax in 8oz water twice daily until bowel movement. May shower, no submersive bathing. Follow up in clinic in 2-4 weeks for wound check and staple removal. No driving while taking narcotic pain medications. Follow up with primary care provider and/or medical subspecialist following discharge as well. Patient not allowed to drive self today or within 24 hours of surgery. No Smoking: If you smoke, Please STOP! Call for help. Follow-up with: Shin Plascencia MD [Provider Admit Priv/Credential] -
--- NOTE | 2020-08-27 19:03 | DISCHARGE SUMMARY ---
Discharge Summary Admit Date: 08/24/20 Discharge Date: 08/27/20 Discharging Provider: Thais Code Status: Attempt Resuscitation Condition at Discharge: Good Discharge Disposition: 01 Home, Self Care - DIAGNOSES Admission Diagnoses: 1. Abdominal pain 2. Bowel obstruction 3. Obstipation 4. Nausea and vomiting 5. Family history of colon cancer Discharge Diagnoses with Status of Each Condition: 1. Abdominal pain - Resolved 2. Bowel obstruction - Resolved 3. Obstipation - Resolved 4. Nausea and vomiting - Resolved 5. Family history of colon cancer - Resolved - HPI History of Present Illness: 60-year-old female with no past surgical history who presents with 24 hours of nausea and vomiting. There is also associated abdominal discomfort and pain as well. She reports recent development of worsening constipation with decreasing frequency and increasing interval between bowel movements. Longstanding history of constipation historically. She denies prior colonoscopy and/or upper endoscopy. History of vaginal delivery x2 with no reported obstetrical laceration. Only past medical history is TIA for which there is no residual deficit. Patient's only medication is HMG Co. a reductase inhibitor. Denies fevers. No similar prior episodes of obstructive symptoms. Work-up by ER physician revealed dilated stomach along with small bowel and surgical consultation obtained. Family history of colorectal cancer. No family history or personal history of inflammatory bowel disease, Crohn's disease, ulcerative colitis. - CONSULTS | PROCEDURES Consultations: NONE Procedures: 1. Upper endoscopy 2. Lower endoscopy 3. Ileoscopy 4. Random foregut biopsies - HOSPITAL COURSE Hospital Course: 60-year-old female with history of TIA no other significant past medical history who presents with gastric distention and signs and symptoms consistent with small bowel obstruction. She has had no prior laparotomy, essentially she has a "virgin" abdomen. This is generally concerning in the setting of bowel obstruction the absence of prior surgical intervention and/or other underlying etiology including hernia to which this could be attributed. No peritoneal signs at this time. Admission plan as follows: 1. Bowel rest, nasogastric decompression, IV fluid resuscitation. 2. Serial abdominal exams, plain film imaging, possible repeat imaging with CT and contrast challenge. 3. May need operative intervention if fails conservative management. Will follow closely. 4. Electrolytes normal at this time we will continue to monitor them with daily lab draws. 5. Given the concerning features on CT imaging regarding the gastric findings and her significant change in bowel function, if we avoid operative intervention we would likely need to proceed with endoscopic evaluation especially given her chronic symptoms. Abdomen pelvis CT impression: 1. Large amount of fluid and gas within the stomach. There is a questionable soft tissue shelf within the gastric antrum. The significance of this finding is unclear; however gastric outlet obstruction secondary to mass cannot be excluded. When possible, direct visualization could be used to further characterize this finding. NG tube could also be useful to decompress the sto mach at this time. 2. Dilated loop of the midportion of the small bowel with apparent proximal dis natalia transition point within the upper abdomen. Findings raises suspicion for closed-loop partial obstruction or internal hernia. Of note the colon is stool- filled suggesting incomplete obstruction. 3. Diverticulosis no active or acute diverticulitis. 60-year-old female with history of TIA no other significant past medical history who presents with gastric distention and signs and symptoms consistent with small bowel obstruction. She has had no prior laparotomy, essentially she has a "virgin" abdomen. She was started on soapsuds enemas following fleets enema with positive stool per rectum. NG tube was used for 2000 cc GoLYTELY bowel prep which was administered slowly over near 24 hours with no residual. Patient began having multiple loose stools and was felt appropriate to proceed with lower endoscopy as well as upper endoscopy for CT scan findings and concerns for obstructive symptoms. Colonoscopy findings: 1. Internal hemorrhoids; nonbleeding. 2. Extensive pancolonic diverticulitis favoring the left 3. Tortuous colon with extensive redundancy requiring counterpressure stiffening wire and postural change in order to achieve the cecum. 4. Terminal ileum achieved normal without any ileitis or other concerning features ileocecal valve rightly patent 5. No colitis no proctitis; as stated matos colonic diverticulosis without any evidence of diverticulitis or diverticular bleed 6. No masses noted however retained stool extensively irrigated ruling out masses and polyps greater than 6 mm Endoscopic findings: 1. Duodenum achieved with no duodenitis no masses no obstruction antrum and pylorus traversed without any evidence of mass lesion in the area on ins ufflation. Biopsies obtained. 2. Gastric biopsies randomly taken with evidence of gastritis. 3. GE junction normal 4. Midesophagus without any pathology 5. Possible small hiatal hernia 6. No masses appreciated grossly Following endoscopy patient was advanced for diet without any complication. Patient was advised that this is likely secondary to colonic inertia and significant longstanding chronic constipation. Thereafter the patient was advanced for diet without any incident. Patient had no nausea no vomiting and no further abdominal distention. Given her family history of colon cancer we would necessarily recommend colonoscopies every 5 years. Moreover given poor prep we may want to repeat the next colonoscopy in short interval. She was advised to proceed with modified diet regular bowel regimen including MiraLAX and clinic follow-up. She had resolved for her symptoms. - ALLERGIES Allergies/Adverse Reactions: Allergies Allergy/AdvReac Type Severity Reaction Status Date / Time No Known Drug Allergies Allergy Verified 09/04/19 04:46 - MEDICATIONS Home Medications: Ambulatory Orders Medication Instructions Recorded Confirmed Alprazolam [Xanax] 0.5 - 1 mg PO Q8HR PRN #14 tablet 09/04/19 08/25/20 Aspirin [Lyla] 325 mg PO DAILY 08/25/20 08/25/20 Atorvastatin [Lipitor] 40 mg PO DAILY 08/25/20 08/25/20 Acetaminophen [Tylenol] 650 mg PO Q4HR tablet 08/27/20 Docusate Sodium 100Mg Capsule 100 mg PO BID #60 capsule 08/27/20 [Colace 100Mg Capsule] Metoclopramide [Reglan] 10 mg PO AC #90 tablet 08/27/20 Pantoprazole Sodium [Protonix] 20 mg PO BID #60 tablet.dr 08/27/20 polyethylene glycoL 3350 [Miralax] 17 gm PO DAILY #1 packet 08/27/20 - PHYSICAL EXAM AT DISCHARGE General Appearance: positive: No acute distress, Alert, Mild distress Eyes Bilateral: positive: Normal inspection, PERRL, EOMI ENT: positive: ENT inspection nml Neck: positive: Nml inspection Respiratory: positive: Chest non-tender Cardiovascular: positive: Regular rate & rhythm Abdomen: positive: Non-tender, No distention. negative: Tenderness, Guarding, Rebound Skin: positive: Color nml Extremities: positive: Non-tender, Full ROM, Nml appearance Neurologic/Psychiatric: positive: Oriented x3, CN's nml (2-12), Motor nml, Sensation nml, Mood/affect nml - LABS Result Diagrams: 08/27/20 04:48 08/27/20 20:22 - DIAGNOSTIC IMAGING Diagnostic Imaging Results: Final report reviewed - SEPSIS Current Stage of Sepsis: Ruled out - FOLLOW UP Follow Up: Follow-up in 2 to 4 weeks with me to assess for response to bowel regimen. - TIME SPENT Time Spent in Discharge (Minutes): 60
[2020-08-27 21:44] VITALS: BP 148/69
== END 2020-08-27 21:35 | disposition home or self-care (01) | DRG 389 ==
LOC: ED 19:30 → OBSVTOIN 08-25 00:05 → MS2 08-25 00:05
PROVIDERS: ADMIT Surgery; ATTEND Surgery
PROC: 0DB98ZX Excision of Duodenum, Via Natural or Artificial Opening Endoscopic, Diagnostic (ICD-10-PCS; 2020-08-26)
PROC: 0DB28ZX Excision of Middle Esophagus, Via Natural or Artificial Opening Endoscopic, Diagnostic (ICD-10-PCS; 2020-08-26)
PROC: 0DB48ZX Excision of Esophagogastric Junction, Via Natural or Artificial Opening Endoscopic, Diagnostic (ICD-10-PCS; 2020-08-26)
PROC: 0DB68ZX Excision of Stomach, Via Natural or Artificial Opening Endoscopic, Diagnostic (ICD-10-PCS; principal; 2020-08-26 10:00)
PROC: 0DJD8ZZ Inspection of Lower Intestinal Tract, Via Natural or Artificial Opening Endoscopic (ICD-10-PCS; 2020-08-26 10:00)
DX: K56.609 Unspecified intestinal obstruction, unspecified as to partial versus complete obstruction (principal); K57.32 Diverticulitis of large intestine without perforation or abscess without bleeding; K29.00 Acute gastritis without bleeding; E87.6 Hypokalemia; K44.9 Diaphragmatic hernia without obstruction or gangrene; K64.8 Other hemorrhoids; G47.30 Sleep apnea, unspecified; K21.9 Gastro-esophageal reflux disease without esophagitis; K59.09 Other constipation; D64.9 Anemia, unspecified; F32.9 Major depressive disorder, single episode, unspecified; F41.9 Anxiety disorder, unspecified; Z90.49 Acquired absence of other specified parts of digestive tract; Z79.82 Long term (current) use of aspirin; Z79.899 Other long term (current) drug therapy; Z86.73 Personal history of transient ischemic attack (TIA), and cerebral infarction without residual deficits; Z80.0 Family history of malignant neoplasm of digestive organs
CPT/HCPCS: 0202U; 36415; 71045; 74018; 74177; 80053; 81003; 83690; 84132; 85025; 93005; 96365; 96375; 99285; A9270; J0131; J1650; J2060; J2765; J7120; Q9967; 81001; 87086

== ENCOUNTER 2020-10-23 08:00 | Outpatient (CLI) | payer BC ==
[2020-10-23 18:07] LABS: BASOPHILS % (AUTO) 0.2 %; EOSINOPHILS % (AUTO) 0.2 %; HGB - HEMOGLOBIN 11.9 g/dL (12.0-16.0); LYMPHOCYTES # (AUTO) 1.6 10^3/uL (1.5-3.5); LYMPHOCYTES % (AUTO) 29.3 %; MEAN CORPUSCULAR HEMOGLOBIN 28.7 pg (27.0-31.0); MEAN CORPUSCULAR HGB CONC 32.2 g/dL (32.0-36.0); MEAN CORPUSCULAR VOLUME 88.9 fL (81.0-99.0); MEAN PLATELET VOLUME 10.3 fL (7.9-10.8); MONOCYTES # (AUTO) 0.5 10^3/uL (0.0-1.0); MONOCYTES % (AUTO) 8.6 %; NEUTROPHILS # (AUTO) 3.3 10^3/uL (1.5-6.6); NEUTROPHILS % (AUTO) 61.5 %; PLT - PLATELET COUNT 289 10^3/uL (130-450); RED BLOOD COUNT 4.15 10^6/uL (4.20-5.40); RED CELL DISTRIBUTION WIDTH 13.2 % (12.0-15.0); WHITE BLOOD COUNT 5.4 x10^3/uL (4.8-10.8)
[2020-10-23 18:19] LABS: ALBUMIN 4.3 g/dL (3.2-5.5); ALBUMIN/GLOBULIN RATIO 1.7 (1.0-2.2); BILIRUBIN,TOTAL 0.5 mg/dL (0.2-1.0); CALCIUM 9.4 mg/dL (8.5-10.3); CREATININE 0.6 mg/dL (0.4-1.0); TOTAL PROTEIN 6.8 g/dL (6.7-8.2)
== END 2020-10-23 23:59 | disposition home or self-care (01) ==
LOC: LAB.WCP 08:00
PROVIDERS: ATTEND Surgery
DX: E87.6 Hypokalemia (principal); D63.8 Anemia in other chronic diseases classified elsewhere
CPT/HCPCS: 36415; 80053; 85025

== ENCOUNTER 2021-03-19 12:01 | Outpatient (CLI) | payer BC ==
--- NOTE | 2021-03-22 13:19 | Mammography Report ---
BILATERAL DIGITAL SCREENING MAMMOGRAM 3D/2D: 03/19/2021 CLINICAL: Routine screening. Comparison is made to exam dated: 03/06/2019 mammogram - [facility]. There are scattered fibroglandular elements in both breasts. There is a biopsy clip in the right breast. No significant masses, calcifications, or other findings are seen in either breast. There has been no significant interval change. IMPRESSION: NEGATIVE There is no mammographic evidence of malignancy. A 1 year screening mammogram is recommended. This exam was interpreted at Station ID: [id number]. NOTE: For mammograms, a report in lay terms will be sent to the patient. Approximately 15% of breast malignancies will not be visualized mammographically. In the management of a palpable breast mass, a negative mammogram must not discourage biopsy of a clinically suspicious lesion. Electronically Signed By: Mauro Monroy M.D. at/penrad:03/19/2021 14:51:38 ACR BI-RADS Category 1: Negative 3341F PARENCHYMAL PATTERN: (A) - The breast(s) demonstrate(s) scattered fibroglandular densities. BI-RADS CATEGORY: (1) - 1 RECOMMENDATION: (ANNUAL) - Recommend routine annual screening mammography. [id number] 1 year screening LATERALITY: (B)
== END 2021-03-19 12:02 | disposition home or self-care (01) ==
LOC: DI 12:01
DX: Z12.31 Encounter for screening mammogram for malignant neoplasm of breast (principal)

== ENCOUNTER 2021-04-14 08:00 | Outpatient (CLI) | payer BC ==
[2021-04-14 17:54] LABS: BASOPHILS % (AUTO) 0.4 %; EOSINOPHILS % (AUTO) 0.1 %; HCT - HEMATOCRIT 38.5 % (37.0-47.0); HGB - HEMOGLOBIN 12.7 g/dL (12.0-16.0); LYMPHOCYTES # (AUTO) 1.5 10^3/uL (1.5-3.5); LYMPHOCYTES % (AUTO) 22.4 %; MEAN CORPUSCULAR HEMOGLOBIN 28.6 pg (27.0-31.0); MEAN CORPUSCULAR VOLUME 86.7 fL (81.0-99.0); MEAN PLATELET VOLUME 10.4 fL (7.9-10.8); MONOCYTES # (AUTO) 0.5 10^3/uL (0.0-1.0); MONOCYTES % (AUTO) 7.8 %; NEUTROPHILS # (AUTO) 4.7 10^3/uL (1.5-6.6); PLT - PLATELET COUNT 339 10^3/uL (130-450); RED BLOOD COUNT 4.44 10^6/uL (4.20-5.40); RED CELL DISTRIBUTION WIDTH 13.7 % (12.0-15.0); WHITE BLOOD COUNT 6.8 x10^3/uL (4.8-10.8)
[2021-04-14 18:19] LABS: % IRON SATURATION 16 % (20-50); ALBUMIN 4.6 g/dL (3.2-5.5); ALKALINE PHOSPHATASE 66 IU/L (42-121); ALT ALANINE AMINOTRANSFERASE 19 IU/L (10-60); AST ASPARTATE AMINOTRANSFERASE 21 IU/L (10-42); BILIRUBIN,TOTAL 0.5 mg/dL (0.2-1.0); BUN - BLOOD UREA NITROGEN 16 mg/dL (6-20); CALCIUM 9.4 mg/dL (8.5-10.3); CARBON DIOXIDE - CO2 26 mmol/L (21-32); CHLORIDE 101 mmol/L (101-111); CHOL/HDL RATIO 2.2 (<4.4); CHOLESTEROL 141 mg/dL; CREATININE 0.6 mg/dL (0.4-1.0); GFR - MDRD 102 (>89); GLUCOSE 88 mg/dL (70-100); HDL CHOLESTEROL 63 mg/dL; IRON 58 ug/dL (28-170); LDL CHOLESTEROL,CALCULATED 67 mg/dL; LDL/HDL RATIO 1.1 (<4.4); MAGNESIUM 2.2 mg/dL (1.7-2.8); POTASSIUM 4.3 mmol/L (3.5-5.0); SODIUM 135 mmol/L (135-145); TOTAL IRON BINDING CAPACITY 358 ug/dL (250-450); TOTAL PROTEIN 6.9 g/dL (6.7-8.2); TRANSFERRIN 256 mg/dL (192-382); TRIGLYCERIDES 56 mg/dL; VLDL CHOLESTEROL 11 mg/dL
[2021-04-14 18:33] LABS: THYROID STIMULATING HORMONE 0.76 uIU/mL (0.34-5.60)
[2021-04-14 18:39] LABS: FERRITIN 23.5 ng/mL (11.0-306.8)
== END 2021-04-14 23:59 | disposition home or self-care (01) ==
LOC: LAB.WCP 08:00
PROVIDERS: ATTEND Family Medicine
DX: E87.6 Hypokalemia (principal); D63.8 Anemia in other chronic diseases classified elsewhere; I63.81 Other cerebral infarction due to occlusion or stenosis of small artery; R00.2 Palpitations
CPT/HCPCS: 36415; 80053; 80061; 82607; 82728; 83540; 83721; 83735; 84443; 84466; 85025

== ENCOUNTER 2021-05-23 13:26 | Emergency (ER) | payer BC ==
[2021-05-23] MEDS ORDERED: MORPHINE 2 MG/ML CARPUJECT IVP STA (14:11)
[2021-05-23] MEDS ORDERED: ONDANSETRON 4 MG/2 ML VIAL IVP STA (14:11)
[2021-05-23] MEDS ORDERED: SODIUM CHLORIDE 0.9% 1,000 ML IV STA ×2 (14:11)
--- NOTE | 2021-05-23 14:14 | ED Physician Documentation ---
History of Present Illness - Stated complaint Stated Complaint: CHEST/STOMACH PX/HEADACHE - Chief complaint Chief Complaint: Abd Pain - History obtained from History obtained from: Patient - History of Present Illness Timing: Last night Pain level max: 6 Pain level now: 6 - Additonal information Additional information: Patient is a 60-year-old female who presents to the emergency department stating she developed a left-sided headache last night. Worse with light and sound, better with rest. She states that she had nausea and vomiting last night and this morning. She states she "does not feel well". Does not have any abdominal pain. No diarrhea. Her daughter was sick with something similar yesterday. The headache is rated as a 7 out of 10. Patient has not had her Covid vaccinations. Review of Systems Constitutional: denies: Fever, Chills Ears: denies: Ear pain Nose: denies: Rhinorrhea / runny nose, Congestion GI: reports: Vomiting : denies: Dysuria Skin: denies: Rash Musculoskeletal: denies: Neck pain, Back pain Neurologic: reports: Headache. 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 is actively working on improving this by taking a class and reading.) Endocrine/Autoimmune: None GI: GERD, Chronic constipation : None Psych: None Musculoskeletal: Osteoarthritis Derm: Other - Past Surgical History Past Surgical History: Yes General: Cholecystectomy, Appendectomy HEENT: Tonsil/Adenoidectomy - Present Medications Home Medications: Ambulatory Orders Medication Instructions Recorded Confirmed ALPRAZolam [Xanax] 0.5 - 1 mg PO Q8HR PRN #14 tablet 09/04/19 08/25/20 Aspirin [Lyla] 325 mg PO DAILY 08/25/20 08/25/20 Atorvastatin [Lipitor] 40 mg PO DAILY 08/25/20 08/25/20 Acetaminophen [Tylenol] 650 mg PO Q4HR tablet 08/27/20 Docusate Sodium 100Mg Capsule 100 mg PO BID #60 capsule 08/27/20 [Colace 100Mg Capsule] Metoclopramide [Reglan] 10 mg PO AC #90 tablet 08/27/20 Pantoprazole Sodium [Protonix] 20 mg PO BID #60 tablet. 08/27/20 polyethylene glycoL 3350 [Miralax] 17 gm PO DAILY #1 packet 08/27/20 Butalb/Acetaminophen/Caffeine 1 cap PO Q6H PRN #10 cap 05/23/21 [Fioricet 50-300-40 mg Capsule] Promethazine [Phenergan] 25 mg PO Q6H PRN #10 tab 05/23/21 - Allergies Allergies/Adverse Reactions: Allergies Allergy/AdvReac Type Severity Reaction Status Date / Time No Known Drug Allergies Allergy Verified 05/23/21 13:41 - Social History Does the pt smoke?: No Smoking Status: Never smoker Does the pt drink ETOH?: No Does the pt have substance abuse?: No - Immunizations Immunizations are current?: Yes - POLST Patient has POLST: No PD ED PE NORMAL - Vitals Vital signs reviewed: Yes - General General: Alert and oriented X 3, No acute distress, Well developed/nourished - HEENT HEENT: Atraumatic, PERRL, EOMI, Ears normal, Moist mucous membranes, Other (no temporal tenderness) - Neck Neck: Supple, no meningeal sign, No bony TTP - Cardiac Cardiac: RRR, Strong equal pulses - Respiratory Respiratory: No respiratory distress, Clear bilaterally - Abdomen Abdomen: Soft, Non tender, Non distended - Back Back: No CVA TTP - Derm Derm: Warm and dry - Extremities Extremities: No edema, No calf tenderness / cord - Neuro Neuro: Alert and oriented X 3 - Psych Psych: Normal mood, Normal affect Results - Vitals Vitals: Vital Signs - 24 hr 05/23/21 05/23/21 13:35 15:41 Temperature 36.2 C L Heart Rate 79 73 Respiratory 16 18 Rate Blood Pressure 138/70 H 104/69 O2 Saturation 100 98 Oxygen O2 Source Room air - Labs Labs: Laboratory Tests 05/23/21 05/23/21 05/23/21 14:16 14:16 14:31 WBC 10.1 RBC 4.57 Hgb 13.2 Hct 38.9 MCV 85.1 MCH 28.9 MCHC 33.9 RDW 13.0 Plt Count 343 MPV 9.4 Neut # (Auto) 9.0 H Lymph # (Auto) 0.8 L [place] # (Auto) 0.2 Eos # (Auto) 0.0 Baso # (Auto) 0.0 Absolute Nucleated RBC 0.00 Nucleated RBC % 0.0 Sodium 130 L Potassium 4.1 Chloride 94 L Carbon Dioxide 26 Anion Gap 10.0 BUN 9 Creatinine 0.5 Estimated GFR (MDRD) 126 Glucose 158 H Calcium 9.4 Total Bilirubin 0.5 AST 21 ALT 16 Alkaline Phosphatase 62 Total Protein 7.3 Albumin 4.6 Globulin 2.7 Albumin/Globulin Ratio 1.7 Lipase 36 Urine Color YELLOW Urine Clarity CLEAR Urine pH 7.0 Ur Specific [place] 1.020 Urine Protein NEGATIVE Urine Glucose (UA) NEGATIVE Urine Ketones NEGATIVE Urine Occult Blood NEGATIVE Urine Nitrite NEGATIVE Urine Bilirubin NEGATIVE Urine Urobilinogen 0.2 (NORMAL) Ur Leukocyte Esterase NEGATIVE Ur Microscopic Review NOT INDICATED Urine Culture Comments NOT INDICATED - Rads (name of study) head CT Radiology: Final report received, EMP read contemporaneously, See rad report (no acute abnormality) PD MEDICAL DECISION MAKING - ED course Complexity details: reviewed results, re-evaluated patient, considered differential, d/w patient ED course: Unclear cause of the patient's symptoms. No acute findings on laboratory testing or head CT. Headache improved. Nausea and vomiting resolved. There have been several patients recently with similar symptoms including left-sided h eadache, nausea and vomiting. Some have diarrhea as well. Daughter sick with same. Possible viral syndrome? Patient feels much better, there is no evidence of subarachnoid hemorrhage. No indication for LP. No indication of temporal arteritis. No temporal artery tenderness. We will have the patient follow-up with her doctor for further care. Patient counseled regarding signs and symptoms for which I believe and urgent re-evaluation would be necessary. Patient with good understanding of and agreement to plan and is comfortable going home at this time This document was made in part using voice recognition software. While efforts are made to proofread this document, sound alike and grammatical errors may occur. Departure - Departure Disposition: 01 Home, Self Care Clinical Impression: Viral syndrome Headache Qualifiers: Headache type: unspecified Headache chronicity pattern: acute headache Intractability: not intractable Qualified Code(s): R51.9 - Headache, unspecified Condition: Good Instructions: ED Viral Syndrome Follow-Up: your,doctor in 3 days if not better [Other] Prescriptions: Butalb/Acetaminophen/Caffeine [Fioricet 50-300-40 mg Capsule] 1 cap PO Q6H PRN #10 cap PRN Reason: headache Promethazine [Phenergan] 25 mg PO Q6H PRN #10 tab PRN Reason: Nausea / Vomiting Comments: Follow-up with your doctor for further care. Return if you worsen. This should improve over the next 24 hours. Your prescriptions were sent to [facility] in [place]. Discharge Date/Time: 05/23/21 16:16
[2021-05-23 14:22] LABS: BASOPHILS % (AUTO) 0.1 %; HCT - HEMATOCRIT 38.9 % (37.0-47.0); HGB - HEMOGLOBIN 13.2 g/dL (12.0-16.0); LYMPHOCYTES # (AUTO) 0.8 10^3/uL (1.5-3.5); LYMPHOCYTES % (AUTO) 8.2 %; MEAN CORPUSCULAR HEMOGLOBIN 28.9 pg (27.0-31.0); MEAN CORPUSCULAR HGB CONC 33.9 g/dL (32.0-36.0); MEAN CORPUSCULAR VOLUME 85.1 fL (81.0-99.0); MEAN PLATELET VOLUME 9.4 fL (7.9-10.8); MONOCYTES # (AUTO) 0.2 10^3/uL (0.0-1.0); MONOCYTES % (AUTO) 1.7 %; NEUTROPHILS % (AUTO) 89.7 %; PLT - PLATELET COUNT 343 10^3/uL (130-450); RED BLOOD COUNT 4.57 10^6/uL (4.20-5.40); WHITE BLOOD COUNT 10.1 x10^3/uL (4.8-10.8)
--- NOTE | 2021-05-23 14:30 | CT Report ---
PROCEDURE: HEAD WO INDICATIONS: L sided headache TECHNIQUE: Noncontrast 4.5 mm thick angled axial sections acquired from the foramen magnum to the vertex. For r adiation dose reduction, the following was used: automated exposure control, adjustment of mA and/or kV according to patient size. COMPARISON: None. FINDINGS: Image quality: Excellent. CSF spaces: Basal cisterns are patent. No extra-axial fluid collections. Ventricles are normal in size and shape. Brain: No midline shift. No intracranial masses or hemorrhage. Goetz-white matter interface is norm al. Skull and face: Calvarium and visualized facial bones are intact, without suspicious lesions. Sinuses: Visualized sinuses and mastoids are clear. IMPRESSION: No acute intracranial abnormality. Reviewed by: Dev Grijalva MD on 05/23/2021 2:29 PM PDT Approved by: Dev Grijalva MD on 05/23/2021 2:29 PM PDT Station ID: [id number]
[2021-05-23 14:34] LABS: ALBUMIN 4.6 g/dL (3.2-5.5); ALBUMIN/GLOBULIN RATIO 1.7 (1.0-2.2); BILIRUBIN,TOTAL 0.5 mg/dL (0.2-1.0); CALCIUM 9.4 mg/dL (8.5-10.3); CREATININE 0.5 mg/dL (0.4-1.0); POTASSIUM 4.1 mmol/L (3.5-5.0); TOTAL PROTEIN 7.3 g/dL (6.7-8.2)
[2021-05-23 14:42] LABS: BILIRUBIN,URINE NEGATIVE (NEGATIVE); GLUCOSE, URINE (UA) NEGATIVE (NEGATIVE); KETONES,URINE (UA) NEGATIVE (NEGATIVE); LEUKOCYTE ESTERASE, URINE NEGATIVE (NEGATIVE); NITRITE,URINE NEGATIVE (NEGATIVE); OCCULT BLOOD,URINE NEGATIVE (NEGATIVE); PROTEIN,URINE NEGATIVE (NEGATIVE); UROBILINOGEN,URINE 0.2 (NORMAL) E.U./dL (NORMAL)
[2021-05-23] MEDS ORDERED: ACETAMINOPHEN 325 MG TABLET PO STA (14:45)
[2021-05-23 14:46] LABS: CLARITY,URINE CLEAR (CLEAR)
[2021-05-23] MEDS ORDERED: diphenhydrAMINE INJ 50 MG/ML VIAL IVP STA (15:35)
[2021-05-23] MEDS ORDERED: PROMETHAZINE INJ 12.5 MG in SODIUM CHLORIDE 0.9% 50 ML IV STA (15:35)
[2021-05-23] MEDS ORDERED: KETOROLAC 30 MG/ML VIAL IVP STA (15:35)
[2021-05-23 15:54] VITALS: BP 104/69
== END 2021-05-23 16:16 | disposition home or self-care (01) ==
LOC: ED 13:26
DX: B34.9 Viral infection, unspecified (principal); R51.9 Headache, unspecified; Z20.822 Contact with and (suspected) exposure to COVID-19; Z86.73 Personal history of transient ischemic attack (TIA), and cerebral infarction without residual deficits
CPT/HCPCS: 36415; 70450; 80053; 81003; 83690; 85025; 87635; 93005; 96365; 96375; 99284; A9270; J7040; 81001; 87086

== ENCOUNTER 2021-06-17 10:07 | Outpatient (CLI) | payer BC | END 2021-06-17 10:08 | disposition home or self-care (01) | LOC: DI 10:07 | PROVIDERS: ATTEND Family Medicine | DX: R00.2 Palpitations (principal) | CPT/HCPCS: 93306 ==

== ENCOUNTER 2021-07-01 15:16 | Emergency (ER) | payer BC ==
[2021-07-01] MEDS ORDERED: ACETAMINOPHEN 325 MG TABLET PO STA (15:39)
--- NOTE | 2021-07-01 15:40 | ED Physician Documentation ---
PD HPI CHEST PAIN - Stated complaint Stated Complaint: CHEST PX/BACK PX - Chief complaint Chief Complaint: Cardiac - History obtained from History obtained from: Patient - Additional information Additional information: Previously healthy 61-year-old woman was out walking her dog. She started to feel nervous for no apparent reason and then got a severe back pain across the mid thoracic spine with mild substernal chest pressure. She is a little short of breath with it. She denies pedal edema or calf pain. No history of DVT or PE or vascular issues other than she had a TIA a few years ago and is maintained on atorvastatin and aspirin since then. Subsequently she went in the house and had a sudden urgent bowel movement. That did not change her pain. 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 is actively working on improving this by taking a class and reading.) Endocrine/Autoimmune: None GI: GERD, Chronic constipation : None Psych: None Musculoskeletal: Osteoarthritis Derm: Other - Past Surgical History Past Surgical History: Yes General: Cholecystectomy, Appendectomy HEENT: Tonsil/Adenoidectomy - Present Medications Home Medications: Ambulatory Orders Medication Instructions Recorded Confirmed Aspirin [Lyla] 325 mg PO DAILY 08/25/20 07/01/21 Atorvastatin [Lipitor] 40 mg PO DAILY 08/25/20 07/01/21 Acetaminophen [Tylenol] 650 mg PO Q4HR tablet 08/27/20 07/01/21 ALPRAZolam [Alprazolam] 0.5 mg PO TID PRN #10 tablet 07/01/21 Trazodone HCl 100 mg QPM 07/01/21 07/01/21 - Allergies Allergies/Adverse Reactions: Allergies Allergy/AdvReac Type Severity Reaction Status Date / Time No Known Drug Allergies Allergy Verified 07/01/21 15:26 - Social History Does the pt smoke?: No Smoking Status: Never smoker Does the pt drink ETOH?: No Does the pt have substance abuse?: No - Immunizations Immunizations are current?: Yes - POLST Patient has POLST: No PD ED PE NORMAL - Vitals Vital signs reviewed: Yes - General General: Alert and oriented X 3, Other (She appears anxious but in otherwise no distress) - HEENT HEENT: PERRL, EOMI - Neck Neck: Supple, no meningeal sign, No bony TTP - Cardiac Cardiac: RRR, No murmur, Strong equal pulses (Equal radial pulses) - Respiratory Respiratory: No respiratory distress, Clear bilaterally - Abdomen Abdomen: Non tender - Back Back: No spinal TTP, Other (I am unable to replace repeat reproduce her back pain with palpation of any part of the back.) - Derm Derm: Normal color, Warm and dry - Extremities Extremities: No edema, No calf tenderness / cord - Neuro Neuro: Alert and oriented X 3, Normal speech - Psych Psych: Normal mood, Normal affect Results - Vitals Vitals: Vital Signs - 24 hr 07/01/21 07/01/21 15:23 16:42 Temperature 35.9 C L Heart Rate 95 94 Respiratory 14 18 Rate Blood Pressure 168/71 H 138/61 H O2 Saturation 100 100 Oxygen O2 Source Room air - EKG (time done) 1516 Rate: Rate (enter#) (84) Rhythm: NSR [place]: Normal Intervals: Normal PA QRS: Normal Ischemia: Normal ST segments Computer interpretation: Agree with computer - Labs Labs: Laboratory Tests 07/01/21 07/01/21 07/01/21 16:17 16:17 17:38 WBC 8.4 RBC 4.84 Hgb 13.7 Hct 41.4 MCV 85.5 MCH 28.3 MCHC 33.1 RDW 13.6 Plt Count 340 MPV 10.0 Neut # (Auto) 6.5 Lymph # (Auto) 1.4 L [place] # (Auto) 0.5 Eos # (Auto) 0.0 Baso # (Auto) 0.0 Absolute Nucleated RBC 0.00 Nucleated RBC % 0.0 Sodium 137 Potassium 3.6 Chloride 100 L Carbon Dioxide 25 Anion Gap 12.0 BUN 13 Creatinine 0.7 Estimated GFR (MDRD) 85 L Glucose 118 H Calcium 9.9 Total Bilirubin 0.7 AST 26 ALT 22 Alkaline Phosphatase 72 Troponin I High Sens 5.2 Total Protein 7.8 Albumin 5.1 Globulin 2.7 Albumin/Globulin Ratio 1.9 Lipase 37 - Rads (name of study) CT Chest Radiology: EMP read contemporaneously (No PE or dissection) PD MEDICAL DECISION MAKING - ED course ED course: 61-year-old woman presents with sudden back pain with radiation to the chest, its in the mid and upper back. This is clearly concerning for dissection. EKG is nonischemic and troponin is negative. Thankfully CTA was negative for dissection. She was quite anxious and requested a prescription specifically for Xanax. This was represcribed. The patient was counseled as to the diagnosis and need for follow-up. I counseled the patient with regard to signs and symptoms that would necessitate an urgent reevaluation in the emergency department. They understand they are welcome to return at any time if worse or if not improving as expected. This document was made in part using voice recognition software. While efforts are made to proofread this documents, sound alike and grammatical errors may occur. Departure - Departure Disposition: 01 Home, Self Care Clinical Impression: Anxiety Chest pain Qualifiers: Chest pain type: unspecified Qualified Code(s): R07.9 - Chest pain, unspecified Back pain Qualifiers: Back pain location: thoracic back pain Chronicity: acute Back pain laterality: bilateral Qualified Code(s): M54.6 - Pain in thoracic spine Condition: Good Record reviewed to determine appropriate education?: Yes Instructions: ED Chest Pain NonCardiac, ED Neck Back Pain General Prescriptions: ALPRAZolam [Alprazolam] 0.5 mg PO TID PRN #10 tablet PRN Reason: Anxiety Comments: Prescription sent electronically to [facility] in [place]. Results were negative, there is no evidence of aortic dissection, pulmonary embolism, or active heart issue. Call your doctor to arrange a follow-up appointment, make the next available appointment. In the interim, return anytime if worse or if new symptoms develop.
[2021-07-01 16:22] LABS: BASOPHILS % (AUTO) 0.2 %; EOSINOPHILS % (AUTO) 0.5 %; HCT - HEMATOCRIT 41.4 % (37.0-47.0); HGB - HEMOGLOBIN 13.7 g/dL (12.0-16.0); LYMPHOCYTES # (AUTO) 1.4 10^3/uL (1.5-3.5); LYMPHOCYTES % (AUTO) 16.2 %; MEAN CORPUSCULAR HEMOGLOBIN 28.3 pg (27.0-31.0); MEAN CORPUSCULAR HGB CONC 33.1 g/dL (32.0-36.0); MEAN CORPUSCULAR VOLUME 85.5 fL (81.0-99.0); MONOCYTES # (AUTO) 0.5 10^3/uL (0.0-1.0); MONOCYTES % (AUTO) 5.5 %; NEUTROPHILS # (AUTO) 6.5 10^3/uL (1.5-6.6); NEUTROPHILS % (AUTO) 77.5 %; PLT - PLATELET COUNT 340 10^3/uL (130-450); RED BLOOD COUNT 4.84 10^6/uL (4.20-5.40); RED CELL DISTRIBUTION WIDTH 13.6 % (12.0-15.0); WHITE BLOOD COUNT 8.4 x10^3/uL (4.8-10.8)
[2021-07-01 16:35] LABS: ALBUMIN 5.1 g/dL (3.2-5.5); ALBUMIN/GLOBULIN RATIO 1.9 (1.0-2.2); BILIRUBIN,TOTAL 0.7 mg/dL (0.2-1.0); CALCIUM 9.9 mg/dL (8.5-10.3); CREATININE 0.7 mg/dL (0.4-1.0); POTASSIUM 3.6 mmol/L (3.5-5.0); TOTAL PROTEIN 7.8 g/dL (6.7-8.2)
[2021-07-01] MEDS ORDERED: IOVERSOL 320 100 ML VIAL IVP ONE ×2 (16:37→22:37)
--- NOTE | 2021-07-01 17:25 | CT Report ---
PROCEDURE: ANGIO CHEST W/WO INDICATIONS: back pain, aorta protocol CONTRAST: IV CONTRAST: Optiray 320 ml: 80 PO CONTRAST: *NO PO CONTRAST TECHNIQUE: Noncontrast images were obtained through the chest. After the administration of intravenous contrast, 2 mm axial images were acquired from the pulmonary apices to the posterior costophrenic angles during the arterial phase. In addition, 1 mm lung kernel and 5 mm soft tissue kernel reconstructions were performed. 3-dimensional coronal oblique maximum int ensity projection (MIP) reformats, 8 mm axial MIP, and 5 mm coronal and sagittal MPR reformats were t hen performed through the thorax. For radiation dose reduction, the following was used: automated exp osure control, adjustment of mA and/or kV according to patient size. COMPARISON: None FINDINGS: Image quality: Excellent. Pulmonary arteries: Pulmonary arteries are normal in size, and demonstrate no intraluminal filling d efects to suggest central pulmonary embolism. Lungs and pleura: Lungs are clear. No pleural effusions or pneumothorax. Central and peripheral ai rways are patent. Mediastinum: In this patient with this given history, scrutiny is given to the aorta. On precontrast imaging, no mural hematomas can be seen to suggest acute dissection. On postcontrast imaging, the ao rta demonstrates normal caliber, without aneurysm or dissection. Heart size is normal, without pericardial effusion. No mediastinal or hilar adenopathy. Esophagus is normal in caliber, without hiatal hernia. Bones and chest wall: No suspicious bony lesions. Mild dextroconvex scoliotic curvature is seen. Age -appropriate degenerative changes are seen. There is accentuated thoracic kyphosis. Ribs and tho racic spine appear intact throughout. No axillary or supraclavicular adenopathy. The thyroid is nor mal in size and there are no incidental findings. Abdomen: Cholecystectomy clips are seen. Visualized upper abdominal solid organs appear normal in the early arterial phase of enhancement. IMPRESSION: Negative for aortic dissection or aortic aneurysm. Negative for pulmonary embolism. Clear lungs. Incidental note is made of: Dextroconvex scoliotic curvature Cholecystectomy Reviewed by: Anastacio Toney MD on 07/01/2021 4:23 PM AKDT Approved by: Anastacio Toney MD on 07/01/2021 4:23 PM AKDT Station ID: [id number]
[2021-07-01 19:15] VITALS: BP 110/84
== END 2021-07-01 18:30 | disposition home or self-care (01) ==
LOC: ED 15:16
DX: F41.9 Anxiety disorder, unspecified (principal); R07.9 Chest pain, unspecified; M54.6 Pain in thoracic spine
CPT/HCPCS: 36415; 71275; 80053; 83690; 84484; 85025; 93005; 99283; 99284; A9270; Q9967

== ENCOUNTER 2022-11-09 14:04 | Outpatient (CLI) | payer BC ==
--- NOTE | 2022-11-10 15:38 | Mammography Report ---
BILATERAL DIGITAL SCREENING MAMMOGRAM 3D/2D: 11/09/2022 CLINICAL: Routine screening. Comparison is made to exams dated: 03/19/2021 mammogram - [facility] and 03/06/2019 m ammogram - [facility]. There are scattered areas of fibroglandular density in both breasts (category b / 25%-50% glandular t issue). There is a biopsy clip in the right breast. No significant masses, calcifications, or other findings are seen in either breast. There has been no significant interval change. IMPRESSION: NEGATIVE There is no mammographic evidence of malignancy. A 1 year screening mammogram is recommended. Based on the Tyrer Cuzick model (a risk assessment model) the patients lifetime risk is 5.1% and her 10 year risk is 2.2%. According to the ACR, ACS, and NCCN guidelines, an annual breast MRI exam nedra g with mammogram is recommended if the patients lifetime risk is 20% or greater. This exam was interpreted at Station ID: [id number]. NOTE: For mammograms, a report in lay terms will be sent to the patient. Approximately 15% of breast malignancies will not be visualized mammographically. In the management of a palpable breast mass, a negative mammogram must not discourage biopsy of a clinically suspicious lesion. Electronically Signed By: Cherrie laura/binh:11/09/2022 18:39:48 letter sent: No_Letter ACR BI-RADS Category 1: Negative 3341F PARENCHYMAL PATTERN: (A) - The breast(s) demonstrate(s) scattered fibroglandular densities. BI-RADS CATEGORY: (1) - 1 Mammogram [id number] 1 year screening LATERALITY: (B)
== END 2022-11-09 14:05 | disposition home or self-care (01) ==
LOC: DI 14:04
DX: Z12.31 Encounter for screening mammogram for malignant neoplasm of breast (principal)

== ENCOUNTER 2022-11-09 14:05 | Outpatient (CLI) | payer BC ==
--- NOTE | 2022-11-09 19:35 | XRAY Report ---
PROCEDURE: Thoracic Spine 3 View INDICATIONS: BACK PAIN, THORACIC REGION, NECK PAIN TECHNIQUE: 3 views of the thoracic spine were acquired. COMPARISON: None. FINDINGS: Bones: No fractures or dislocations. Trace dextroconvex curvature of the midthoracic spine. No susp icious bony lesions. 12 pairs of ribs are noted, and appear intact where visualized. Soft tissues: No paravertebral stripe thickening. IMPRESSION: No acute osseous abnormality. If symptoms persist or there is continued clinical concern, further milind luation with MRI or CT may be helpful. Reviewed by: Dev Grijalva MD on 11/09/2022 7:34 PM PST Approved by: Dev Grijalva MD on 11/09/2022 7:34 PM PST Station ID: [id number]
--- NOTE | 2022-11-09 19:38 | XRAY Report ---
PROCEDURE: Cervical Spine Comp w/Flex/Ext INDICATIONS: BACK PAIN, THORACIC REGION, NECK PAIN TECHNIQUE: 7 views of the cervical spine were acquired. COMPARISON: None. FINDINGS: Bones: No acute fractures or dislocations to the C7 level. No suspicious bony lesions. Disc space n arrowing and degenerative endplate changes are most prominent at the C5-6 level. Oblique views demons trates multilevel neural foraminal narrowing that is most notable and moderate in severity at the C5- 6 level bilaterally. Flexion and extension images demonstrate limited range of motion without abnorma l subluxation. Soft tissues: Prevertebral soft tissues are normal in thickness. IMPRESSION: Multilevel spondylosis is most notable at the C5-6 level. Reviewed by: Dev Grijalva MD on 11/09/2022 7:36 PM PST Approved by: Dev Grijalva MD on 11/09/2022 7:36 PM PST Station ID: [id number]
== END 2022-11-09 14:06 | disposition home or self-care (01) ==
LOC: DI 14:05
PROVIDERS: ATTEND Physician Assistant
DX: M54.6 Pain in thoracic spine (principal); M47.812 Spondylosis without myelopathy or radiculopathy, cervical region

== ENCOUNTER 2024-04-24 13:50 | Outpatient (CLI) | payer BC ==
--- NOTE | 2024-04-26 15:34 | Mammography Report ---
BILATERAL DIGITAL SCREENING MAMMOGRAM 3D/2D: 04/24/2024 CLINICAL: Routine screening. Family history of breast cancer. Comparison is made to exams dated: 11/09/2022 mammogram, 03/19/2021 mammogram - [facility], and 03/06/2019 mammogram - [facility]. There are scattered areas of fibroglandular density in both breasts (category b / 25%-50% glandular t issue). There is a biopsy clip in the right breast. No significant masses, calcifications, or other findings are seen in either breast. There has been no significant interval change. IMPRESSION: BENIGN There is no mammographic evidence of malignancy. A 1 year screening mammogram is recommended. Based on the Tyrer Cuzick model (a risk assessment model) the patient's lifetime risk is 10.6% and he r 10 year risk is 4.8%. According to the ACR, ACS, and NCCN guidelines, an annual breast MRI exam [place] ng with mammogram is recommended if the patient's lifetime risk is 20% or greater. This exam was interpreted at Station ID: [id number]. NOTE: For mammograms, a report in lay terms will be sent to the patient. Approximately 15% of breast malignancies will not be visualized mammographically. In the management of a palpable breast mass, a negative mammogram must not discourage biopsy of a clinically suspicious lesion. Electronically Signed By: Marycarmen Hameed M.D., Ph.D. melisa/binh:04/25/2024 10:52:40 letter sent: No_Letter ACR BI-RADS Category 2: Benign Finding(s) 3342F PARENCHYMAL PATTERN: (A) - The breast(s) demonstrate(s) scattered fibroglandular densities. BI-RADS CATEGORY: (2) - 2 RECOMMENDATION: (ANNUAL) - Recommend routine annual screening mammography. [id number] 1 year screening LATERALITY: (B)
== END 2024-04-24 13:51 | disposition home or self-care (01) ==
LOC: DI 13:50
DX: Z12.31 Encounter for screening mammogram for malignant neoplasm of breast (principal); R92.323 Mammographic fibroglandular density, bilateral breasts; Z80.3 Family history of malignant neoplasm of breast